=== PATIENT | male | born 1980 | race Caucasian/White ===

== ENCOUNTER 2016-12-14 03:48 | Inpatient (IN) | payer OTHER ==
[~2016-12-14] VITALS: Ht 176.5 cm; Wt 153.8 kg
--- NOTE | 2016-12-14 04:12 | NUR ---
PT TO ED C/O NON HEALING DIABETIC ULCER RT GREAT TOE. HAS HAD FOR "A FEW MONTHS" GETTING WORSE, NOW "THE TOE IS RED AND SWOLLEN AND THE ULCER IS DRAINING"
[2016-12-14 05:05] LABS: ABSOLUTE BASOPHIL COUNT 0.1 /CUMM (0.0-0.2); ABSOLUTE EOSINOPHIL COUNT 0.1 /CUMM (0.0-0.7); ABSOLUTE GRANULOCYTE CT 9.2 /CUMM (1.4-6.5); ABSOLUTE LYMPH COUNT 1.5 /CUMM (1.2-3.4); ABSOLUTE MONOCYTE COUNT 0.5 /CUMM (0.10-0.60); BASOPHIL % 0.9 % (0.0-2.0); EOSINOPHIL % 0.9 % (0-5); HEMATOCRIT 39.8 % (42-52); MEAN CORPUSCULAR HGB 25.7 PG (27.0-31.0); MEAN CORPUSCULAR HGB CONC 33.6 G/DL (33.0-37.0); MEAN CORPUSCULAR VOLUME 76.4 FL (80.0-94.0); MEAN PLATELET VOLUME 8.8 FL (7.4-10.4); PLATELET COUNT 233 /CUMM (130-400); RBC DISTRIBUTION WIDTH 14.1 % (11.5-14.5); WHITE BLOOD CELL COUNT 11.4 /CUMM (4.8-10.8)
--- NOTE | 2016-12-14 05:12 | RADIOLOGY REPORT ---
EXAMINATION: XR TOES, RIGHT CLINICAL INFORMATION: Chronic ulcer on the first toe. Redness to the metatarsal. COMPARISON: None TECHNIQUE: 3 views of the right toes were obtained. FINDINGS: There is soft tissue ulceration at the plantar aspect of the first digit. No definite osseous erosion. Slight lucency noted at the plantar aspect of the distal phalanx. Mild degenerative changes are noted at the interphalangeal joint and first metatarsophalangeal joint with small osteophytes present. Soft tissue swelling noted. IMPRESSION: No erosions. Lucency noted at the plantar aspect of the first digit distal phalanx adjacent to the ulcer. Osteomyelitis could have this appearance. MRI is more sensitive for the evaluation.
--- NOTE | 2016-12-14 05:44 | ED ANKLE/FOOT INJURY COMPLAINT ---
History of Present Illness General Chief Complaint: Lower Extremity Problems Stated Complaint: R TOE PAIN SINCE YESTERDAY Source: patient, old records Exam Limitations: no limitations Vital Signs & Intake/Output Vital Signs & Intake/Output Vital Signs Date Time Temp Pulse Resp B/P Pulse O2 O2 Flow FiO2 Ox Delivery Rate 12/14 0705 98.2 100 18 155/90 98 Room Air 12/14 0625 Room Air 12/14 0410 98.1 113 18 167/108 99 Room Air Allergies Coded Allergies: penicillin G (RASH 12/14/16) Reconcile Medications Alprazolam (Alprazolam ER) 1 MG TAB.ER.24H 1 TAB PO DAILY MENTAL HEALTH ( Reported) Cholecalciferol (Vitamin D3) (Vitamin D) 2,000 UNIT CAPSULE 5,000 UNIT PO DAILY VITAMIN SUPPORT (Reported) Glipizide (Glipizide ER) 10 MG TAB.ER.24 1 TAB PO DAILY DIABETES (Reported) Losartan Potassium 100 MG TABLET 1 TAB PO DAILY HEART HEALTH (Reported) Metformin HCl 500 MG TABLET 2 TAB PO BID DIABETES (Reported) Multivitamin (Daily Multiple Vitamin) 1 EACH TABLET 1 TAB PO DAILY VITAMIN SUPPORT (Reported) Sertraline HCl 100 MG TABLET 2.5 TAB PO DAILY MENTAL HEALTH (Reported) Triage Note: PT TO ED C/O NON HEALING DIABETIC ULCER RT GREAT TOE. HAS HAD FOR "A FEW MONTHS" GETTING WORSE, NOW "THE TOE IS RED AND SWOLLEN AND THE ULCER IS DRAINING" Triage Nurses Notes Reviewed? yes Occurred: yesterday Duration: day(s):, constant, continues in ED, getting worse Timing: recent history Severity: moderate Pain/Injury Location: Right: 1st toe. Method of Injury: unknown Modifying Factors: Improves With: immobilization, rest. Worsens With: movement. Associated Symptoms: swelling, redness, GCS 15 since, stiffness HPI: Several months prior to admission patient has had a poorly healing ulcer the base of his first right toe. 1 day prior to admission he noted redness and swelling to the metatarsal area. He denies fever chills nausea vomiting diarrhea abdominal pain chest pain shortness breath headache dysuria bleeding. Past History Travel History Traveled to [place] past 21 day No Medical History Any Pertinent Medical History? see below for history Cardiovascular: hypertension Psychiatric: anxiety, PANIC DISORDER Endocrine: diabetes Surgical History Surgical History: non-contributory Psychosocial History What is your primary language Ukrainian Tobacco Use: Never used ETOH Use: denies use Illicit Drug Use: denies illicit drug use Family History Hx Contributory? No Review of Systems Review of Systems Constitutional: Reports: no symptoms. EENTM: Reports: no symptoms. Respiratory: Reports: no symptoms. Cardiovascular: Reports: no symptoms. GI: Reports: no symptoms. Genitourinary: Reports: no symptoms. Musculoskeletal: Reports: no symptoms. Skin: Reports: see HPI, change in skin color, change in hair/nails, rash. Neurological/Psychological: Reports: no symptoms. Hematologic/Endocrine: Reports: no symptoms. Immunologic/Allergic: Reports: no symptoms. All Other Systems: Reviewed and Negative Physical Exam Physical Exam General Appearance: well developed/nourished, alert, awake, anxious, moderate distress, obese Head: atraumatic, normal appearance Eyes: Bilateral: normal appearance, PERRL, EOMI. Ears, Nose, Throat: normal pharynx, normal ENT inspection, hearing grossly normal Neck: normal inspection, supple, full range of motion, no midline tenderness Cardiovascular/Respiratory: normal breath sounds, normal peripheral pulses, regular rate/rhythm, no respiratory distress Back: normal inspection Leg/Knee/Thigh Left: normal range of motion, normal inspection Leg/Knee/Thigh Right: normal range of motion, normal inspection, right lateral pretibial ulcer Ankle Left: normal inspection, normal range of motion Ankle Right: normal inspection, normal range of motion Foot Left: normal inspection, normal range of motion Foot Right: erythema, infection, limited range of motion, soft tissue tenderness , swelling Reflexes: 2+: knee (R), knee (L). Neuro/Vascular: normal motor function Tendon: normal tendon function Psychiatric: awake, alert, oriented x 3 Skin: warm/dry, rash Progress Differential Diagnosis: cellulitis, gout, osteomyelitis Plan of Care: Orders Procedure Date/time Status Consistent Carbohydrate 2 12/14 B Active OXYGEN SETUP (GEN) 12/14 531 Active Saline Lock 12/14 531 Active Admit to inpatient 12/14 531 Active Vital Signs 12/14 531 Active Activity/Ambulation 12/14 531 Active Code Status 12/14 531 Active C-REACTIVE PROTEIN 12/14 429 Complete BLOOD CULTURE 12/14 423 Active HIGH SENSITIVITY CRP 12/14 423 Complete WESTERGREN SED RATE 12/14 423 Complete COMPREHENSIVE METABOLIC PANEL 12/14 423 Complete CBC WITHOUT DIFFERENTIAL 12/14 423 Complete Laboratory Tests 12/14/16 0430: Anion Gap 11, Estimated GFR > 60, BUN/Creatinine Ratio 27.5 H, Glucose 371 H, Calcium 8.9, Total Bilirubin 0.5, AST 18, ALT 38, Alkaline Phosphatase 105, C- Reactive Prot, Quant > 9.0 H, C-React Prot High Sens > 15.0 H, Total Protein 7.0, Albumin 3.6, Globulin 3.4, Albumin/Globulin Ratio 1.1, CBC w Diff NO MAN DIFF REQ, RBC 5.20, MCV 76.4 L, MCH 25.7 L, RDW 14.1, MPV 8.8, Gran % 81.0 H, Lymphocytes % 13.0 L, Monocytes % 4.2, Eosinophils % 0.9, Basophils % 0.9, Absolute Granulocytes 9.2 H, Absolute Lymphocytes 1.5, Absolute Monocytes 0.5, Absolute Eosinophils 0.1, Absolute Basophils 0.1, PUBS MCHC 33.6, ESR Westergren 109 H Microbiology 12/14 449 BLOOD: Blood Culture - RECD 12/14 429 BLOOD: Blood Culture - RECD Diagnostic Imaging: Viewed by Me: Radiology Read. Discussed w/RAD: Radiology Read. Radiology Impression: No erosions. Lucency noted at the plantar aspect of the first digit distal phalanx adjacent to the ulcer. Osteomyelitis could have this appearance Departure Departure Time of Disposition: 542 Disposition: STILL A PATIENT Condition: Stable Clinical Impression Primary Impression: Osteomyelitis of toe of right foot Referrals: ANGEL VARGAS,LOU (PCP/Family) Departure Forms: Customer Survey General Discharge Information Admission Note Spoke With: WALESKA VARGAS,JAMA Documentation of Exam: Documentation of any treatments & extenuating circumstances including Concerns Regarding Discharge (functional status, medication knowledge or non-compliance, living conditions, etc.) that warrant an admission rather than observation: IV antibiotics follow cultures podiatry evaluation MRI medication adjustment continuing care discharge planning.
--- NOTE | 2016-12-14 05:45 | NUR ---
BLOOOD CULTURES X2 DRAWN AND SENT TO LAB IV ACCESS ESTABLISHED LFA 22G PT REQUESTING BROTHER BE HERE PRIOR TO IV ANTIBIOTIC ADMINISTRATION. PT ASKING QUESTIONS ABOUT ALLERGIC REACTIONS. REASSUARANCE PROVIDED TO PATIENT
[2016-12-14] MEDS ORDERED: METFORMIN HCL500 M3 PO (07:24)
[2016-12-14] MEDS ORDERED: GLIPIZIDE ER10 M1 PO (07:24)
[2016-12-14] MEDS ORDERED: SERTRALINE HCL100 MG PO (07:25)
[2016-12-14] MEDS ORDERED: ALPRAZOLAM ER1 MG PO (07:25)
[2016-12-14] MEDS ORDERED: LOSARTAN POTAS100 M1 PO (07:26)
[2016-12-14] MEDS ORDERED: DAILY MULTIPLE1 EACH PO (07:26)
[2016-12-14] MEDS ORDERED: VITAMIN D2000 UNIT PO (07:27)
--- NOTE | 2016-12-14 07:56 | NUR ---
AWAITING BED ASSIGNMENT. ORDERED PT BREAKFAST. Informed waiting has been performed.
--- NOTE | 2016-12-14 09:12 | NUR ---
PT HAS BED ASSIGNMENT [id number]. RN NOTIFIED.
--- NOTE | 2016-12-14 09:20 | NUR ---
MEDICATED PER EMAR. HOUSESTAFF IN FOR EVAL.
[2016-12-14] MEDS ORDERED: NEXIUM40 M1 PO (09:33)
--- NOTE | 2016-12-14 09:41 | NUR ---
REPORT TO ANITA HAYWOOD ON 2NB. TRANSPORT CALLED.
--- NOTE | 2016-12-14 09:54 | NUR ---
PT TO FLOOR VIA W/C. ALL PAPERWORK AND BELONGINGS SENT. CLINICAL STATUS UNCHANGED.
--- NOTE | 2016-12-14 10:23 | History & Physical ---
CHRIS REYESKAVON 12/14/16 1023: General Information and HPI MD Statement: I have seen and personally examined ZENOBIA PAUL and documented this H&P. The patient is a 36 year old M who presented with a patient stated chief complaint of [ulcer under the right big toe]. Source of Information: patient Exam Limitations: no limitations History of Present Illness: 36-year-old man with past medical history of diabetes, hypertension, anxiety, depression came to the hospital for chief complaint of swelling, ulcer of the right big toe. Patient reports that he's been having this ulcer for at least 5 months and he was recommended by his PCP to see the brinell tester, however he never did. Patient reported this Thursday he felt fever of 100.5, with mild chills and weakness and redness around his also got worse. He has very mild pain of 2 out of 10. He denies any nausea, vomiting, chest pain, abdominal pain, shortness of breath, dizziness, sick contacts. Patient does report of having an ulcer in the same area about 1-1/2 years ago which resolved on its own. Vital signs on admission showed no fevers, mildly elevated blood pressure and pulses of 100 WBC showed 11.7, ESR 109, blood sugar 350, hg 13.4 mcv 76 toe x ray IMPRESSION: No erosions. Lucency noted at the plantar aspect of the first digit distal phalanx adjacent to the ulcer. Osteomyelitis could have this appearance. MRI is more sensitive for the evaluation. Allergies/Medications Allergies: Coded Allergies: penicillin G (RASH 12/14/16) Home Med list Alprazolam (Alprazolam ER) 1 MG TAB.ER.24H 1 TAB PO DAILY MENTAL HEALTH ( Reported) Cholecalciferol (Vitamin D3) (Vitamin D) 2,000 UNIT CAPSULE 5,000 UNIT PO DAILY VITAMIN SUPPORT (Reported) Esomeprazole (Nexium) 40 MG CAPSULE.DR 1 CAP PO DAILY gerd (Reported) Glipizide (Glipizide ER) 10 MG TAB.ER.24 1 TAB PO DAILY DIABETES (Reported) Losartan Potassium 100 MG TABLET 1 TAB PO DAILY HEART HEALTH (Reported) Metformin HCl 500 MG TABLET 2 TAB PO BID DIABETES (Reported) Multivitamin (Daily Multiple Vitamin) 1 EACH TABLET 1 TAB PO DAILY VITAMIN SUPPORT (Reported) Sertraline HCl 100 MG TABLET 2.5 TAB PO DAILY MENTAL HEALTH (Reported) Past History Travel History Traveled to [place] past 21 day No Medical History Blood Transfusion Hx: No Neurological: NONE EENT: NONE Cardiovascular: hypertension Respiratory: NONE Gastrointestinal: NONE Hepatic: NONE Renal: NONE Musculoskeletal: NONE Psychiatric: NONE, anxiety, PANIC DISORDER Endocrine: diabetes Blood Disorders: NONE Cancer(s): 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 Psychosocial History Where do you live? Home Services at Home: None Smoking Status: Never Smoked ETOH Use: denies use Illicit Drug Use: denies illicit drug use Review of Systems Review of Systems Constitutional: Reports: see HPI. Exam & Diagnostic Data Last 24 Hrs of Vital Signs/I&O Vital Signs Date Time Temp Pulse Resp B/P Pulse O2 O2 Flow FiO2 Ox Delivery Rate 12/14 0944 98.4 90 20 150/80 96 Room Air 12/14 0738 97.8 90 20 179/89 100 Room Air 12/14 0705 98.2 100 18 155/90 98 Room Air 12/14 0625 Room Air 12/14 0410 98.1 113 18 167/108 99 Room Air Intake & Output 12/14 1600 / 0800 12/14 0000 Intake Total 250 Output Total Balance 250 Intake, IV 250 Intake, Oral 0 Patient 340 lb 340 lb Weight Physical Exam General Appearance Alert, Oriented X3, Cooperative Cardiovascular Normal S1, Normal S2, tachycardic,2/6 systlic murmur Lungs Clear to Auscultation, Normal Air Movement Abdomen Normal Bowel Sounds, Soft, No Tenderness, No Hepatospenomegaly Neurological decreasd sensation of tips of all toes Extremities mild ankle edema bilaterally, 3x3 oval ulcer under the big right toe , mild pus Body Front and Back (Adult) 1) ulcer Assessment/Plan Assessment: 36-year-old man with past medical history of diabetes, hypertension, anxiety, depression came to the hospital for chief complaint of swelling, ulcer of the right big toe. Vital signs on admission showed no fevers, mildly elevated blood pressure and pulses of 100 WBC showed 11.7, ESR 109, blood sugar 350, toe x ray IMPRESSION: No erosions. Lucency noted at the plantar aspect of the first digit distal phalanx adjacent to the ulcer. Osteomyelitis could have this appearance. MRI is more sensitive for the evaluation. Assessment and plan #Ulcer of the big toe, rule out osteomyelitis -Patient got set vancomycin and ceftaz in ED,w will hold off any abx for now -Check for fevers, any signs of sepsis -ID and podiatry are notified -cbc daily -mri with/ without CHAY tomorrow -EKG for baseline #Diabetes -Sliding scale insulin, fingerstick, diabetic diet #Hypertension, anxiety -Continue Zoloft, Cozaar, Ativan #microcytc anemia -Check iron studies -Check guaiac stool DVT prophylaxis is Lovenox, full code, oxycodone for pain, diabetic diet As Ranked By This Provider Problem List: 1. Osteomyelitis of toe of right foot Core Measures/Miscellaneous Acute Coronary Syndrome ACS Diagnosis: No Cerebrovascular Accident CVA/TIA Diagnosis: No Congestive Heart Failure CHF Diagnosis: No Venous Thromboembolism VTE Risk Factors: Obesity VTE Prophylaxis Ordered Inpt: Mech & Pharm No Mech VTE prophylaxis d/t: No contraindications No VTE Pharm Prophylaxis d/t: No contraindications VTE Diagnosis: No VTE Type: NONE VTE Confirmed by (Test): NONE Severe Sepsis Severe Sepsis Present: No Septic Shock Septic Shock Present: No Miscellaneous Documentation Attending Case Discussed With: JAMA GALEANO MD Primary Care Physician: LOU ORTIZ MD Patient sees these Specialists n/a Level of Patient Care: General Medicine JAMA GALEANO MD 12/14/16 1340: Attending MD Review Statement Attending Statement Attending MD Statement: examined this patient, discuss w/resident/PA/ROENTGENOLOGIST, agreed w/resident/PA/ROENTGENOLOGIST, reviewed EMR data (avail) Attending Assessment/Plan: 36-year-old man with past medical history of diabetes, hypertension, anxiety, depression came to the hospital for chief complaint of swelling, ulcer of the right big toe with surrounding erythema and swelling and a punched out lesion on the plantar surface with x-rays suggesting ostium myelitis. His sedimentation rate is elevated above 100. Assessment plan * Uncontrolled diabetes * Morbid obesity * Ostermeier does have right great toe with mild surrounding cellulitis * Chronic anemia Plan * We'll obtain infectious disease and prior to consult * Pain control * Patient likely will need insulin therefore I will begin 8 units Levemir twice a day and continue sliding scale. Patient can continue his glipizide hold Glucophage for now given the possibility of near future MRI. * Patient may need biopsy of the right great toe and cultures.
--- NOTE | 2016-12-14 13:44 | Admission Certification ---
Admission Certification Certification Statement - As attending physician, I certify that at the time of - admission, based on clinical presentation, severity of - symptoms, need for further diagnostic testing and - therapeutic interventions, and risk of adverse outcomes - without in-hospital treatment, in my clinical assessment, - this patient requires an acute hospital stay for a minimum - of two nights or longer. I have also considered psychsocial - factors such as support system, advanced age, financial - issues, cognitive issues, and failed out-patient treatments, - past re-admission history, safety of patient, and lack of - compliance as applicable. Specific rationale supporting this admission is: Osteomyelitis of right great toe and uncontrolled diabetes
[2016-12-14 14:51] VITALS: BP 148/82
--- NOTE | 2016-12-14 15:35 | Cons- Podiatry ---
General Information and HPI Consulting Request Date of Consult: 12/14/16 Requested By: WALESKA VARGAS,JAMA History of Present Illness: Mr. Rosario is a 36-year-old poorly controlled diabetic who presented to the ER complaining of a 2 day history of a red hot swollen right great toe. The patient also admits to subjective fever 2 days ago. Patient states that his sugars are poorly controlled and that he has had this lesion for 4-5 months. Allergies/Medications Allergies: Coded Allergies: penicillin G (RASH 12/14/16) Home Med List: Alprazolam (Alprazolam ER) 1 MG TAB.ER.24H 1 TAB PO DAILY MENTAL HEALTH ( Reported) Cholecalciferol (Vitamin D3) (Vitamin D) 2,000 UNIT CAPSULE 5,000 UNIT PO DAILY VITAMIN SUPPORT (Reported) Esomeprazole (Nexium) 40 MG CAPSULE.DR 1 CAP PO DAILY gerd (Reported) Glipizide (Glipizide ER) 10 MG TAB.ER.24 1 TAB PO DAILY DIABETES (Reported) Losartan Potassium 100 MG TABLET 1 TAB PO DAILY HEART HEALTH (Reported) Metformin HCl 500 MG TABLET 2 TAB PO BID DIABETES (Reported) Multivitamin (Daily Multiple Vitamin) 1 EACH TABLET 1 TAB PO DAILY VITAMIN SUPPORT (Reported) Sertraline HCl 100 MG TABLET 2.5 TAB PO DAILY MENTAL HEALTH (Reported) Past History Medical History Blood Transfusion Hx: No Neurological: NONE EENT: NONE Cardiovascular: hypertension Respiratory: NONE Gastrointestinal: NONE Hepatic: NONE Renal: NONE Musculoskeletal: NONE Psychiatric: NONE, anxiety, PANIC DISORDER Endocrine: diabetes Blood Disorders: NONE Cancer(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 Psychosocial History Where Do You Live? Home Services at Home: None Smoking Status: Never Smoked ETOH Use: denies use Illicit Drug Use: denies illicit drug use Review of Systems Review of Systems: Unremarkable except for that noted in history of present illness Exam & Diagnostic Data Vital Signs and I&O Vital Signs Date Time Temp Pulse Resp B/P Pulse O2 O2 Flow FiO2 Ox Delivery Rate 12/14 1451 98.6 109 20 148/82 97 Room Air 12/14 0944 98.4 90 20 150/80 96 Room Air 12/14 0738 97.8 90 20 179/89 100 Room Air 12/14 0705 98.2 100 18 155/90 98 Room Air 12/14 0625 Room Air 12/14 0410 98.1 113 18 167/108 99 Room Air Intake & Output 12/14 1600 12/14 0812/14 0000 12/13 1600 12/13 0812/13 0000 Intake Total 1000 250 Output Total Balance 1000 250 Intake, IV 250 Intake, Oral 1000 0 Patient 340 lb 340 lb Weight Physical Exam: 3 cm x 2 half centimeter Milian grade 3 ulceration noted to the plantar aspect of the right great toe. There is necrotic slough overlying the wound bed. Centrally the lesion is noted to probe to bone. No crepitus or fluctuance identified. Proximally 3-4 cm of cellulitis extending from the periphery of the wound bed. Minimal serous drainage identified. Assessment/Plan Assessment/Plan Cellulitis right lower extremity with likely underlying osteomyelitis. Hold antibiotics assuming the patient is stable and afebrile. Will follow-up MRI findings tomorrow. Patient will require either a debridement or amputation pending the imaging tomorrow. Consult Acknowledgment - Thank you for your consult request. Attending MD Review Statement Attending Statement Attending MD Statement: examined this patient
[2016-12-14 15:49] VITALS: BP 168/108
--- NOTE | 2016-12-14 16:35 | Cons- Infect Disease ---
General Information and HPI Consulting Request Date of Consult: 12/14/16 Requested By: WALESKA VARGAS,JAMA Reason for Consult: Rule out osteomyelitis of the right great toe Source of Information: patient History of Present Illness: This is a 36-year-old man with a history of diabetes for 4 years, with a secondary neuropathy, noncompliant with his medication, and with a history of a previous ulcer on the right great toe which healed with conservative care, admitted today with a six-month history of a recurrent ulcer on the plantar aspect of his right great toe and a 2 day history of erythema and swelling of the toe, with drainage and fever. On admission he was afebrile. Laboratory data revealed a white blood cell count of 11,000, glucose 371, BUN/creatinine 22 and 0.8, with normal liver enzymes, ESR 109. X-ray of the right foot revealed a lucency at the plantar aspect of the first digit distal phalanx. He was given Vancomycin and Ceftazidime and was then followed off antibiotics. He denies any pain, which he attributes to his neuropathy. Allergies/Medications Allergies: Coded Allergies: penicillin G (RASH 12/14/16) Home Med List: Alprazolam (Alprazolam ER) 1 MG TAB.ER.24H 1 TAB PO DAILY MENTAL HEALTH ( Reported) Cholecalciferol (Vitamin D3) (Vitamin D) 2,000 UNIT CAPSULE 5,000 UNIT PO DAILY VITAMIN SUPPORT (Reported) Esomeprazole (Nexium) 40 MG CAPSULE.DR 1 CAP PO DAILY gerd (Reported) Glipizide (Glipizide ER) 10 MG TAB.ER.24 1 TAB PO DAILY DIABETES (Reported) Losartan Potassium 100 MG TABLET 1 TAB PO DAILY HEART HEALTH (Reported) Metformin HCl 500 MG TABLET 2 TAB PO BID DIABETES (Reported) Multivitamin (Daily Multiple Vitamin) 1 EACH TABLET 1 TAB PO DAILY VITAMIN SUPPORT (Reported) Sertraline HCl 100 MG TABLET 2.5 TAB PO DAILY MENTAL HEALTH (Reported) Past History Travel History Traveled to [place] past 21 day No Medical History Blood Transfusion Hx: No Neurological: peripheral neuropathy EENT: NONE Cardiovascular: hypertension Respiratory: NONE Gastrointestinal: NONE Hepatic: NONE Renal: NONE Musculoskeletal: NONE Psychiatric: anxiety, PANIC DISORDER Endocrine: diabetes Blood Disorders: NONE Cancer(s): 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 Psychosocial History Where Do You Live? Home Services at Home: None Smoking Status: Never Smoked ETOH Use: denies use Illicit Drug Use: denies illicit drug use Review of Systems Review of Systems All Other Systems: Reviewed and Negative Exam & Diagnostic Data Last 24 Hrs of Vital Signs/I&O Vital Signs Date Time Temp Pulse Resp B/P Pulse O2 O2 Flow FiO2 Ox Delivery Rate 12/14 1549 97.9 112 18 168/108 95 Room Air 12/14 1451 98.6 109 20 148/82 97 Room Air 12/14 0944 98.4 90 20 150/80 96 Room Air 12/14 0738 97.8 90 20 179/89 100 Room Air 12/14 0705 98.2 100 18 155/90 98 Room Air 12/14 0625 Room Air 12/14 0410 98.1 113 18 167/108 99 Room Air Intake & Output 12/14 1600 12/14 0800 12/14 0000 Intake Total 1000 250 Output Total Balance 1000 250 Intake, IV 250 Intake, Oral 1000 0 Patient 340 lb 340 lb Weight Physical Exam Other Physical Findings: He is awake and alert in no acute distress. He is afebrile. Skin reveals psoriatic lesions on his back. HEENT exam is negative. Neck is supple with no adenopathy. Lungs are clear. Heart regular rhythm with no murmur. Abdomen is obese, soft, nontender with positive bowel sounds. Back no CVA tenderness. Extremities right great toe erythema and edema, with a plantar ulcer, slightly necrotic, which probes to bone, with drainage on the dressing; pulses 2+ and equal; no cyanosis, clubbing or edema of the lower extremities. Neuro neuropathy both feet. Last 24 Hours of Lab Results: Laboratory Tests 12/14 0430 Chemistry Sodium (137 - 145 mmol/L) 132 L Potassium (3.5 - 5.1 mmol/L) 4.5 Chloride (98 - 107 mmol/L) 93 L Carbon Dioxide (22 - 30 mmol/L) 28 Anion Gap (5 - 16) 11 BUN (9 - 20 mg/dL) 22 H Creatinine (0.7 - 1.2 mg/dL) 0.8 Estimated GFR (>60 ml/min) > 60 BUN/Creatinine Ratio (7 - 25 %) 27.5 H Glucose (65 - 99 mg/dL) 371 H Calcium (8.4 - 10.2 mg/dL) 8.9 Iron (49 - 181 ug/dL) 24 L TIBC (261 - 462 ug/dL) 293 Ferritin (17.9 - 464 ng/mL) 110.0 Total Bilirubin (0.2 - 1.3 mg/dL) 0.5 AST (17 - 59 U/L) 18 ALT (21 - 72 U/L) 38 Alkaline Phosphatase (< 127 U/L) 105 C-Reactive Prot, Quant (<1.0 mg/dL) > 9.0 H C-React Prot High Sens (1.0 - 3.0 mg/L) > 15.0 H Total Protein (6.3 - 8.2 g/dL) 7.0 Albumin (3.5 - 5.0 g/dL) 3.6 Globulin (1.9 - 4.2 gm/dL) 3.4 Albumin/Globulin Ratio (1.1 - 2.2 %) 1.1 Hematology CBC w Diff NO MAN DIFF REQ WBC (4.8 - 10.8 /CUMM) 11.4 H RBC (4.70 - 6.10 /CUMM) 5.20 Hgb (14.0 - 18.0 G/DL) 13.4 L Hct (42 - 52 %) 39.8 L MCV (80.0 - 94.0 FL) 76.4 L MCH (27.0 - 31.0 PG) 25.7 L RDW (11.5 - 14.5 %) 14.1 Plt Count (130 - 400 /CUMM) 233 MPV (7.4 - 10.4 FL) 8.8 Gran % (42.2 - 75.2 %) 81.0 H Lymphocytes % (20.5 - 51.1 %) 13.0 L Monocytes % (1.7 - 9.3 %) 4.2 Eosinophils % (0 - 5 %) 0.9 Basophils % (0.0 - 2.0 %) 0.9 Absolute Granulocytes (1.4 - 6.5 /CUMM) 9.2 H Absolute Lymphocytes (1.2 - 3.4 /CUMM) 1.5 Absolute Monocytes (0.10 - 0.60 /CUMM) 0.5 Absolute Eosinophils (0.0 - 0.7 /CUMM) 0.1 Absolute Basophils (0.0 - 0.2 /CUMM) 0.1 PUBS MCHC (33.0 - 37.0 G/DL) 33.6 ESR Westergren (0 - 10 MM) 109 H Last 24 Hours of [facility] Results: Blood cultures December 14 pending Diagnostic Data Recent Imaging Findings: X-ray of the right foot December 14 reveals a slight lucency at the plantar aspect of the distal phalanx of the first digit Assessment/Plan Assessment/Plan Impression: This is a 36-year-old diabetic man with a secondary neuropathy, admitted this morning with a six-month history of a right great toe plantar ulcer and a 2 day history of erythema and swelling of the right great toe, with drainage and fevers, found on admission to be afebrile with a mild leukocytosis and with an x -ray suggestive of possible osteomyelitis of the distal phalanx of the right great toe. His history is very suggestive of osteomyelitis, and this diagnosis is supported by the elevated ESR. He will need debridement/probable amputation and, possibly, a prolonged course of IV antibiotics, depending on whether there is felt to be residual osteomyelitis after his surgery. An MRI can be done, though, clinically, his clinical picture is quite suggestive of this diagnosis. As he is stable he can be followed off antibiotics in an effort to optimize the culture results. Suggestion: 1. Await MRI of the right foot 2. Await debridement/amputation in the OR per Podiatry 3. Follow off antibiotics pending above Consult Acknowledgment - Thank you for your consult request.
[2016-12-14 23:56] VITALS: BP 137/65
--- NOTE | 2016-12-15 06:48 | PN- Housestaff ---
See Addendum Subjective Follow-up For: Right great toe osteomyelitis Subjective: Patient seen and examiend at bedside this AM. He endorsed a 2/10 toe pain that is tolerable. He is amenable to MRI today and willing to go to the OR with Dr. Luis if MRI is revealing for osteomyelitis. Review of Systems Constitutional: Denies: chills, fever, malaise. EENTM: Denies: blurred vision, visual changes, hearing changes, nasal congestion. Cardiovascular: Denies: chest pain, palpitations. Respiratory: Denies: cough, short of breath. Gastrointestinal: Denies: abdominal pain. Genitourinary: Denies: dysuria. Musculoskeletal: Reports: joint pain (Right great toe). Denies: back pain. Skin: Reports: lesions (Right great toe). Neurological/Psychological: Reports: numbness (Peripheral neuropathy), paresthesia. Hematologic/Endocrine: Denies: bruising, bleeding. Immunologic/Allergic: Denies: splenectomy. Objective Last 24 Hrs of Vital Signs/I&O Vital Signs Date Time Temp Pulse Resp B/P Pulse O2 O2 Flow FiO2 Ox Delivery Rate 12/15 1005 108 144/106 12/15 0906 98.2 110 20 150/80 97 Room Air 12/14 2356 97.4 82 20 137/65 96 Room Air 12/14 1549 97.9 112 18 168/108 95 Room Air Intake & Output 12/15 1600 12/15 0800 12/15 0000 Intake Total 720 340 Output Total Balance 720 340 Intake, Oral 720 340 Physical Exam General Appearance: Alert, Oriented X3, Cooperative, No Acute Distress Skin: Right great toe lesion with evidence of erythema and drainage HEENT: Atraumatic, Mucous Membr. moist/pink Neck: Supple, No LAD Lymphatic: Axillary nl, Cervical nl Cardiovascular: Regular Rate, Normal S1, Normal S2, No Murmurs Lungs: Clear to Auscultation, Normal Air Movement Abdomen: Normal Bowel Sounds, Soft, No Tenderness, No Hepatospenomegaly Neurological: Normal Gait, Normal Speech Extremities: No Clubbing, No Cyanosis Current Medications: Current Medications Sig/Gerard Start time Last Medication Dose Route Stop Time Status Admin Acetaminophen 650 MG Q6P PRN 12/14 0945 AC PO Alprazolam 0.5 MG BID 12/14 2199 DC PO 12/21 2158 Alprazolam 0.25 MG 4 TIMES/DAY 12/14 1630 AC 12/15 PO 12/21 1629 1338 Enoxaparin Sodium 40 MG DAILY 12/15 1000 AC SC Ferrous Sulfate 325 MG DAILY 12/15 1000 AC 12/15 PO 1006 Glipizide 10 MG DAILY AC 12/14 0900 AC 12/15 PO 0616 Insulin Aspart 0 TIDAC 12/14 1200 AC 12/15 SC 12/16 0000 1335 Insulin Detemir 4 UNITS BID 12/14 2200 AC 12/15 SC 1006 Insulin Human Regular 0 Q6 12/16 0600 AC SC Losartan Potassium 100 MG DAILY 12/14 1000 AC 12/15 PO 1005 Metformin HCl 1,000 MG 0800,1700 12/14 0800 DC 12/14 PO 1648 Morphine Sulfate 4 MG Q4P PRN 12/14 0945 AC IV Omeprazole 20 MG DAILY AC 12/15 0700 AC 12/15 PO 0616 Oxycodone HCl 5 MG Q6P PRN 12/14 0945 AC PO Sertraline HCl 250 MG DAILY 12/14 1000 AC 12/15 PO 1005 Vancomycin HCl 1,000 MG Q12 12/14 220 DC Dextrose/Water 250 ML IV Last 24 Hrs of Lab/Umang Results Last 24 Hrs of Labs/Mics: Laboratory Tests 12/15/16 0745: Anion Gap 11, Estimated GFR > 60, BUN/Creatinine Ratio 22.2, CBC w Diff NO MAN DIFF REQ, RBC 5.00, MCV 76.8 L, MCH 25.9 L, RDW 14.2, MPV 9.3, Gran % 81.4 H, Lymphocytes % 12.1 L, Monocytes % 4.7, Eosinophils % 1.5, Basophils % 0.3, Absolute Granulocytes 8.8 H, Absolute Lymphocytes 1.3, Absolute Monocytes 0.5, Absolute Eosinophils 0.2, Absolute Basophils 0, PUBS MCHC 33.7 12/15/16 0600: Hemoglobin A1c Pending Orders Radiology Findings: Toe XRay: IMPRESSION: No erosions. Lucency noted at the plantar aspect of the first digit distal phalanx adjacent to the ulcer. Osteomyelitis could have this appearance. MRI is more sensitive for the evaluation. Miscellaneous Findings: EXAMINATION: MRI FOOT WITHOUT AND WITH CONTRAST, RIGHT CLINICAL INFORMATION: Osteomyelitis. Ulcer right great toe plantar aspect. COMPARISON: None. TECHNIQUE: MRI the right foot was performed before and after contrast. Contrast dose 20 mL of Gadavist given intravenously. The examination is technically compromised because of patient movement throughout the examination despite repeating multiple sequences. Patient could not hold still throughout the exam. The field of view is limited to the forefoot given the clinical indication. FINDINGS: Despite the limitation because of motion artifact, there is some diagnostic information on the examination. Great Toe: There is abnormal signal and enhancement in the subcutaneous soft tissues, most prominent along the medial plantar aspect of the toe at the level of the distal phalanx. The abnormal signal extends from the superficial portion of the soft tissues to the bone. This abnormal signal is dark on T1 bright on T2. There is some signal void superficially which may reflect an ulcer or air in the soft tissues. There is concomitant abnormal signal throughout the distal phalanx and proximal phalanx crossing the IP joint where there is also a moderate joint effusion. Concomitant enhancement of the bone corresponding to the areas of bone marrow edema. No definite bone destruction or erosion. There is additional generalized abnormal signal in the subcutaneous soft tissues with some minimal heterogeneous enhancement throughout the forefoot compatible with edema, cellulitis or a combination of both. Muscles/Tendons: There is abnormal signal diffusely throughout with some possible mild heterogeneous enhancement compatible with edema and/or myositis. No focal fluid collection identified. Joint Fluid/Bursa: As noted above, there is a moderate effusion of the IP joint of the great toe and a mild effusion of the first metacarpophalangeal joint. Otherwise unremarkable. Neurovascular Structures: Unremarkable. Ligaments: Unremarkable. IMPRESSION: Limited examination as the patient was moving throughout the examination resulting in motion artifact. Despite this, there is some diagnostic information available. Findings compatible with ulceration and/or soft tissue infection/cellulitis overlying the plantar medial aspect of the distal phalanx, possibly with an ulcer and/or small superficial sinus tract. There is concomitant abnormal signal within the distal phalanx and proximal phalanx crossing the IP joint which likely reflects osteomyelitis and septic arthritis in the clinical scenario presented. No clear bone erosion or destruction on the examination. However, the findings likely reflect early osteomyelitis prior to a morphologic abnormality. Other noninfectious inflammatory arthropathy could result in the same appearance but typically are not associated with overlying soft tissue changes as described. Additional abnormality in the subcutaneous soft tissues of the forefoot could reflect edema, cellulitis or a combination of the two. Additionally, there is abnormal signal in the muscles of the forefoot, likely reflecting edema and/or myositis. Assessment/Plan Assessment: Mr. Rosario is a pleasant 36 year old male with PMH DM, HTN, anxitey and depression who presented to [place] on 12/14/16 with chief complaint of swelling and ulceration of his right large toe. This ulceration has been present for at least 5 months, but recently it has been associated with fever to 100.5, chills weakness and erythema. In the ED: Vitals showed T 98.1, HR 113, RR 18, BP 167/109 and O2 saturation of 99% on RA. Labs were significant for WBC 11.7 without bandemia, H&H 13.4/39.8, Na 132, ESR 109, BUN 22, blood sugar 350, Fe 24. Patient was admitted to the general medicine floor and the following is the management: 1. Right great toe osteomyelitis * Initial toe Xray suggestive of osteomyelitis, f/u MRI today showed findings consistent with osteomyelitis * Patient currently off antibiotics pending OR with Dr. Luis tomorrow * NPO after midnight, will adjust sliding scale accordingly * ID consult appreciated, suggested patient begin Cefazolin 2 g IV every 8 hours postop pending OR cultures * Patient currently remains afebrile, monitor for fevers * BC x 2 sent, f/u results * Pain control with morphine for severe pain, roxicodone for moderate pain, and tylenol for mild pain 2. HTN, HLD * Continue losartan 100 mg PO daily 3. Diabetes mellitus * HgA1C ordered, f/u results * Continue NSS and glipizide, levemir 4 U SC BID * Accuchecks TIDAC/HS 4. Anxiety/depression * Continue zoloft 250 mg PO daily * Continue xanax QID 0.25 mg as needed for anxiety 4. Microcytic anemia * NO active signs of bleeding * Fe level noted to be low * Ferrous sulfate started FULL CODE Regular diet Mild-severe pain pathway DVTP: Lovenox Problem List: 1. Osteomyelitis of toe of right foot Pain Ratin Pain Location: Right great toe Pain Goal: Remain pain free Pain Plan: Mild to severe pain pathway. Tomorrow's Labs & Rationales: CBC (monitor leukocytosis)
[2016-12-15 09:06] VITALS: BP 150/80
[2016-12-15 09:26] LABS: ABSOLUTE BASOPHIL COUNT 0 /CUMM (0.0-0.2); ABSOLUTE EOSINOPHIL COUNT 0.2 /CUMM (0.0-0.7); ABSOLUTE GRANULOCYTE CT 8.8 /CUMM (1.4-6.5); ABSOLUTE LYMPH COUNT 1.3 /CUMM (1.2-3.4); ABSOLUTE MONOCYTE COUNT 0.5 /CUMM (0.10-0.60); BASOPHIL % 0.3 % (0.0-2.0); EOSINOPHIL % 1.5 % (0-5); GRANULOCYTE % 81.4 % (42.2-75.2); HEMATOCRIT 38.4 % (42-52); MEAN CORPUSCULAR HGB 25.9 PG (27.0-31.0); MEAN CORPUSCULAR HGB CONC 33.7 G/DL (33.0-37.0); MEAN CORPUSCULAR VOLUME 76.8 FL (80.0-94.0); MEAN PLATELET VOLUME 9.3 FL (7.4-10.4); PLATELET COUNT 236 /CUMM (130-400); RBC DISTRIBUTION WIDTH 14.2 % (11.5-14.5); WHITE BLOOD CELL COUNT 10.8 /CUMM (4.8-10.8)
--- NOTE | 2016-12-15 13:51 | MRI REPORT ---
EXAMINATION: MRI FOOT WITHOUT AND WITH CONTRAST, RIGHT CLINICAL INFORMATION: Osteomyelitis. Ulcer right great toe plantar aspect. COMPARISON: None. TECHNIQUE: MRI the right foot was performed before and after contrast. Contrast dose 20 mL of Gadavist given intravenously. The examination is technically compromised because of patient movement throughout the examination despite repeating multiple sequences. Patient could not hold still throughout the exam. The field of view is limited to the forefoot given the clinical indication. FINDINGS: Despite the limitation because of motion artifact, there is some diagnostic information on the examination. Great Toe: There is abnormal signal and enhancement in the subcutaneous soft tissues, most prominent along the medial plantar aspect of the toe at the level of the distal phalanx. The abnormal signal extends from the superficial portion of the soft tissues to the bone. This abnormal signal is dark on T1 bright on T2. There is some signal void superficially which may reflect an ulcer or air in the soft tissues. There is concomitant abnormal signal throughout the distal phalanx and proximal phalanx crossing the IP joint where there is also a moderate joint effusion. Concomitant enhancement of the bone corresponding to the areas of bone marrow edema. No definite bone destruction or erosion. There is additional generalized abnormal signal in the subcutaneous soft tissues with some minimal heterogeneous enhancement throughout the forefoot compatible with edema, cellulitis or a combination of both. Muscles/Tendons: There is abnormal signal diffusely throughout with some possible mild heterogeneous enhancement compatible with edema and/or myositis. No focal fluid collection identified. Joint Fluid/Bursa: As noted above, there is a moderate effusion of the IP joint of the great toe and a mild effusion of the first metacarpophalangeal joint. Otherwise unremarkable. Neurovascular Structures: Unremarkable. Ligaments: Unremarkable. IMPRESSION: Limited examination as the patient was moving throughout the examination resulting in motion artifact. Despite this, there is some diagnostic information available. Findings compatible with ulceration and/or soft tissue infection/cellulitis overlying the plantar medial aspect of the distal phalanx, possibly with an ulcer and/or small superficial sinus tract. There is concomitant abnormal signal within the distal phalanx and proximal phalanx crossing the IP joint which likely reflects osteomyelitis and septic arthritis in the clinical scenario presented. No clear bone erosion or destruction on the examination. However, the findings likely reflect early osteomyelitis prior to a morphologic abnormality. Other noninfectious inflammatory arthropathy could result in the same appearance but typically are not associated with overlying soft tissue changes as described. Additional abnormality in the subcutaneous soft tissues of the forefoot could reflect edema, cellulitis or a combination of the two. Additionally, there is abnormal signal in the muscles of the forefoot, likely reflecting edema and/or myositis.
--- NOTE | 2016-12-15 15:38 | PN- Infect Dx ---
Subjective Subjective: Afebrile. He notes minimal discomfort in the right great toe. Objective Last 24 Hrs of Vital Signs/I&O Vital Signs Date Time Temp Pulse Resp B/P Pulse O2 O2 Flow FiO2 Ox Delivery Rate 12/15 1005 108 144/106 12/15 0906 98.2 110 20 150/80 97 Room Air 12/14 2356 97.4 82 20 137/65 96 Room Air 12/14 1549 97.9 112 18 168/108 95 Room Air Intake & Output 12/15 1600 12/15 0800 12/15 0000 Intake Total 720 340 Output Total Balance 720 340 Intake, Oral 720 340 Physical Exam Other Physical Findings: He appears comfortable in no acute distress Extremities right great toe edema with minimal erythema, nontender to palpation; plantar ulcer unchanged with old drainage on the dressing Results Last 24 Hours of Lab Results: Laboratory Tests 12/15 12/15 0745 0600 Chemistry Sodium (137 - 145 mmol/L) 138 Potassium (3.5 - 5.1 mmol/L) 5.1 Chloride (98 - 107 mmol/L) 97 L Carbon Dioxide (22 - 30 mmol/L) 29 Anion Gap (5 - 16) 11 BUN (9 - 20 mg/dL) 20 Creatinine (0.7 - 1.2 mg/dL) 0.9 Estimated GFR (>60 ml/min) > 60 BUN/Creatinine Ratio (7 - 25 %) 22.2 Hemoglobin A1c Pending Hematology CBC w Diff NO MAN DIFF REQ WBC (4.8 - 10.8 /CUMM) 10.8 RBC (4.70 - 6.10 /CUMM) 5.00 Hgb (14.0 - 18.0 G/DL) 12.9 L Hct (42 - 52 %) 38.4 L MCV (80.0 - 94.0 FL) 76.8 L MCH (27.0 - 31.0 PG) 25.9 L RDW (11.5 - 14.5 %) 14.2 Plt Count (130 - 400 /CUMM) 236 MPV (7.4 - 10.4 FL) 9.3 Gran % (42.2 - 75.2 %) 81.4 H Lymphocytes % (20.5 - 51.1 %) 12.1 L Monocytes % (1.7 - 9.3 %) 4.7 Eosinophils % (0 - 5 %) 1.5 Basophils % (0.0 - 2.0 %) 0.3 Absolute Granulocytes (1.4 - 6.5 /CUMM) 8.8 H Absolute Lymphocytes (1.2 - 3.4 /CUMM) 1.3 Absolute Monocytes (0.10 - 0.60 /CUMM) 0.5 Absolute Eosinophils (0.0 - 0.7 /CUMM) 0.2 Absolute Basophils (0.0 - 0.2 /CUMM) 0 PUBS MCHC (33.0 - 37.0 G/DL) 33.7 Last 24 Hours of Umang Results: Blood cultures December 14 negative Recent Imaging Studies: MRI of the right foot December 15 reveals an abnormal signal and enhancement in the subcutaneous soft tissues, most prominent along the medial plantar aspect of the toe at the level of the distal phalanx, extending to the bone, with concomitant abnormal signal throughout the distal phalanx and proximal phalanx crossing the IP joint, with a moderate joint effusion Assessment/Plan Impression: Stable off antibiotics with temperatures remaining normal and white blood cell count only minimally elevated. His MRI is suggestive of osteomyelitis and septic arthritis and he is scheduled for debridement and probable amputation of the right great toe in the a.m. He may well require a prolonged course of antibiotics postop for residual osteomyelitis, but this can be further discussed with Podiatry and will depend on the OR findings. As he is stable he can continue to be followed off antibiotics, but he can be started on antibiotics postop pending OR cultures. He does have a remote and questionable allergy to penicillins, but has tolerated cephalosporins, and this may affect the antibiotic options. Suggestion: 1. Await debridement/amputation in the OR in the a.m. 2. Continue to follow off antibiotics pending above, but can begin Cefazolin 2 g IV every 8 hours postop pending OR cultures
[2016-12-15 16:35] VITALS: BP 146/98
--- NOTE | 2016-12-15 16:51 | PN- Podiatry ---
Subjective Subjective: Patient seen at bedside for right foot osteomyelitis. No acute complaints overnight. Patient denies nausea vomiting fever chills. Patient states that his foot pain is well-controlled by mouth analgesics. Objective Vital Signs and I&Os Vital Signs Date Time Temp Pulse Resp B/P Pulse O2 O2 Flow FiO2 Ox Delivery Rate 12/15 1635 98.8 105 21 146/98 96 Room Air 12/15 1005 108 144/106 12/15 0906 98.2 110 20 150/80 97 Room Air 12/14 2356 97.4 82 20 137/65 96 Room Air Intake & Output 12/15 1600 12/15 0800 12/15 0000 12/14 1600 12/14 0800 12/14 0000 Intake Total 851 752 8986 250 Output Total Balance 120 307 9322 250 Intake, IV 250 Intake, Oral 510 293 6874 0 Patient 340 lb 340 lb Weight Physical Exam: Dressing right foot clean dry and intact. No strikethrough identified. No pain with deep palpation bilaterally. Assessment/Plan Assessment/Plan Cellulitis nonhealing ulcer with underlying ostium myelitis right foot. Patient nothing by mouth past midnight for OR tomorrow. Patient undergo primary digital amputation. Attending MD Review Statement Attending Statement Attending MD Statement: examined this patient
[2016-12-16 00:01] VITALS: BP 140/86
--- NOTE | 2016-12-16 07:01 | PN- Housestaff ---
See Addendum Subjective Follow-up For: Right toe osteomyelitis Uncontrolled DM Subjective: Patient seen and examined at bedside this AM. He reports his pain is minimal and he is prepared for surgery today. He offers no other complaints and is aware he will be placed on IV antibiotics after his procedure with Dr. Luis. Review of Systems Constitutional: Denies: chills, fever, malaise. EENTM: Denies: blurred vision, visual changes, hearing changes. Cardiovascular: Denies: chest pain, palpitations. Respiratory: Denies: cough, short of breath. Gastrointestinal: Denies: abdominal pain, nausea, vomiting. Genitourinary: Denies: dysuria. Musculoskeletal: Reports: joint pain (Right toe). Denies: back pain. Skin: Reports: lesions (Right great toe). Neurological/Psychological: Reports: numbness, paresthesia (Peripheral neuropathy). Hematologic/Endocrine: Denies: polyuria, polydipsia. Immunologic/Allergic: Denies: splenectomy. Objective Last 24 Hrs of Vital Signs/I&O Vital Signs Date Time Temp Pulse Resp B/P Pulse O2 O2 Flow FiO2 Ox Delivery Rate 12/16 0809 98.6 102 20 132/70 95 Room Air 12/16 0001 98.8 100 20 140/86 96 Room Air 12/15 1635 98.8 105 21 146/98 96 Room Air Intake & Output 12/16 1600 12/16 0800 12/16 0000 Intake Total 0 400 Output Total Balance 0 400 Intake, Oral 0 400 Patient 339 lb Weight Physical Exam General Appearance: Alert, Oriented X3, Cooperative, No Acute Distress Skin: Right great toe ulceration with erythema. Noted drainage. HEENT: Atraumatic, Mucous Membr. moist/pink Neck: Supple Cardiovascular: Regular Rate, Normal S1, Normal S2, No Murmurs Lungs: Decreased breath sounds bilaterally 2/2 body habitus Abdomen: Normal Bowel Sounds, Soft, No Tenderness, Obese Neurological: Normal Speech, Strength at 5/5 X4 Ext, Normal Tone Extremities: No Clubbing, No Cyanosis Current Medications: Current Medications Sig/Gerard Start time Last Medication Dose Route Stop Time Status Admin Acetaminophen 650 MG Q6P PRN 12/14 0945 AC PO Alprazolam 0.25 MG 4 TIMES/DAY 12/14 1630 AC 12/15 PO 12/21 1629 2159 Enoxaparin Sodium 40 MG DAILY 12/15 1000 AC SC Ferrous Sulfate 325 MG DAILY 12/15 1000 AC 12/15 PO 1006 Glipizide 10 MG DAILY AC 12/14 0900 AC 12/15 PO 0616 Insulin Aspart 0 TIDAC 12/14 1200 DC 12/15 SC 12/16 0000 1813 Insulin Detemir 4 UNITS BID 12/14 2200 AC 12/15 SC 2159 Insulin Human Regular 0 Q6 12/16 0600 DC SC Insulin Human Regular 0 Q6 12/16 0000 AC 12/16 SC 0624 Losartan Potassium 100 MG DAILY 12/14 1000 AC 12/15 PO 1005 Morphine Sulfate 4 MG Q4P PRN 12/14 0845 AC IV Omeprazole 20 MG DAILY AC 12/15 0700 AC 12/15 PO 0616 Oxycodone HCl 5 MG Q6P PRN 12/14 0845 AC PO Sertraline HCl 250 MG DAILY 12/14 1000 AC 12/15 PO 1005 Last 24 Hrs of Lab/Umang Results Last 24 Hrs of Labs/Mics: Laboratory Tests 12/16/16 0620: CBC w Diff NO MAN DIFF REQ, RBC 5.08, MCV 75.8 L, MCH 25.6 L, RDW 14.1, MPV 8.8, Gran % 75.8 H, Lymphocytes % 16.2 L, Monocytes % 5.6, Eosinophils % 2.0, Basophils % 0.4, Absolute Granulocytes 6.5, Absolute Lymphocytes 1.4, Absolute Monocytes 0.5, Absolute Eosinophils 0.2, Absolute Basophils 0, PUBS MCHC 33.8 Orders Miscellaneous Findings: EXAMINATION: MRI FOOT WITHOUT AND WITH CONTRAST, RIGHT CLINICAL INFORMATION: Osteomyelitis. Ulcer right great toe plantar aspect. COMPARISON: None. TECHNIQUE: MRI the right foot was performed before and after contrast. Contrast dose 20 mL of Gadavist given intravenously. The examination is technically compromised because of patient movement throughout the examination despite repeating multiple sequences. Patient could not hold still throughout the exam. The field of view is limited to the forefoot given the clinical indication. FINDINGS: Despite the limitation because of motion artifact, there is some diagnostic information on the examination. Great Toe: There is abnormal signal and enhancement in the subcutaneous soft tissues, most prominent along the medial plantar aspect of the toe at the level of the distal phalanx. The abnormal signal extends from the superficial portion of the soft tissues to the bone. This abnormal signal is dark on T1 bright on T2. There is some signal void superficially which may reflect an ulcer or air in the soft tissues. There is concomitant abnormal signal throughout the distal phalanx and proximal phalanx crossing the IP joint where there is also a moderate joint effusion. Concomitant enhancement of the bone corresponding to the areas of bone marrow edema. No definite bone destruction or erosion. There is additional generalized abnormal signal in the subcutaneous soft tissues with some minimal heterogeneous enhancement throughout the forefoot compatible with edema, cellulitis or a combination of both. Muscles/Tendons: There is abnormal signal diffusely throughout with some possible mild heterogeneous enhancement compatible with edema and/or myositis. No focal fluid collection identified. Joint Fluid/Bursa: As noted above, there is a moderate effusion of the IP joint of the great toe and a mild effusion of the first metacarpophalangeal joint. Otherwise unremarkable. Neurovascular Structures: Unremarkable. Ligaments: Unremarkable. IMPRESSION: Limited examination as the patient was moving throughout the examination resulting in motion artifact. Despite this, there is some diagnostic information available. Findings compatible with ulceration and/or soft tissue infection/cellulitis overlying the plantar medial aspect of the distal phalanx, possibly with an ulcer and/or small superficial sinus tract. There is concomitant abnormal signal within the distal phalanx and proximal phalanx crossing the IP joint which likely reflects osteomyelitis and septic arthritis in the clinical scenario presented. No clear bone erosion or destruction on the examination. However, the findings likely reflect early osteomyelitis prior to a morphologic abnormality. Other noninfectious inflammatory arthropathy could result in the same appearance but typically are not associated with overlying soft tissue changes as described. Additional abnormality in the subcutaneous soft tissues of the forefoot could reflect edema, cellulitis or a combination of the two. Additionally, there is abnormal signal in the muscles of the forefoot, likely reflecting edema and/or myositis. Assessment/Plan Assessment: Mr. Rosario is a pleasant 36 year old male with PMH DM, HTN, anxitey and depression who presented to [facility] on 12/14/16 with chief complaint of swelling and ulceration of his right large toe. This ulceration has been present for at least 5 months, but recently it has been associated with fever to 100.5, chills weakness and erythema. In the ED: Vitals showed T 98.1, HR 113, RR 18, BP 167/109 and O2 saturation of 99% on RA. Labs were significant for WBC 11.7 without bandemia, H&H 13.4/39.8, Na 132, ESR 109, BUN 22, blood sugar 350, Fe 24. Patient was admitted to the general medicine floor and the following is the management: 1. Right great toe osteomyelitis * Initial toe Xray suggestive of osteomyelitis, MRI yesterday suggestive of osteomyelitis with possible joint septic arthritis; also noted were possible sinus tracts * Patient currently off antibiotics pending OR with Dr. Luis today (will follow up bone biopsy post op) * NPO currently, will restart diet post-op * ID consult appreciated, suggested patient begin Cefazolin 2 g IV every 8 hours postop pending OR cultures * Patient currently remains afebrile, monitor for fevers * BC x 2 sent, NGTD, f/u final results * Pain control with morphine for severe pain, roxicodone for moderate pain, and tylenol for mild pain 2. HTN, HLD * Continue losartan 100 mg PO daily 3. Diabetes mellitus * HgA1C ordered, elevated to 12.9 * Continue NSS and glipizide, levemir 4 U SC BID * Accuchecks TIDAC/HS * Endocrinology consult placed for today, will f/u recommendations * Patient counseled on weight loss and needing strict diet to better control FSGs 4. Anxiety/depression * Continue zoloft 250 mg PO daily * Continue xanax QID 0.25 mg as needed for anxiety 4. Microcytic anemia * NO active signs of bleeding * Fe level noted to be low * Ferrous sulfate started, will continue FULL CODE Regular diet Mild-severe pain pathway DVTP: Lovenox Problem List: 1. Osteomyelitis of toe of right foot 2. Uncontrolled diabetes mellitus Pain Ratin Pain Location: Right great toe Pain Goal: Pain 4 or less Pain Plan: Tylenol for mild pain, roxicodone for mdoerate, morphine for severe pain. Tomorrow's Labs & Rationales: CBC (monitor WBC count and H&H post-op), BEP (increasing K).
[2016-12-16 08:00] LABS: ABSOLUTE BASOPHIL COUNT 0 /CUMM (0.0-0.2); ABSOLUTE EOSINOPHIL COUNT 0.2 /CUMM (0.0-0.7); ABSOLUTE GRANULOCYTE CT 6.5 /CUMM (1.4-6.5); ABSOLUTE LYMPH COUNT 1.4 /CUMM (1.2-3.4); ABSOLUTE MONOCYTE COUNT 0.5 /CUMM (0.10-0.60); BASOPHIL % 0.4 % (0.0-2.0); GRANULOCYTE % 75.8 % (42.2-75.2); HEMATOCRIT 38.5 % (42-52); MEAN CORPUSCULAR HGB 25.6 PG (27.0-31.0); MEAN CORPUSCULAR HGB CONC 33.8 G/DL (33.0-37.0); MEAN CORPUSCULAR VOLUME 75.8 FL (80.0-94.0); MEAN PLATELET VOLUME 8.8 FL (7.4-10.4); PLATELET COUNT 249 /CUMM (130-400); RBC DISTRIBUTION WIDTH 14.1 % (11.5-14.5); RED BLOOD CELL CT 5.08 /CUMM (4.70-6.10); WHITE BLOOD CELL COUNT 8.6 /CUMM (4.8-10.8)
[2016-12-16 08:09] VITALS: BP 132/70
--- NOTE | 2016-12-16 12:49 | Cons- Endocrinology ---
General Information and HPI Consulting Request Date of Consult: 12/16/16 Requested By: medical team Reason for Consult: DM management Source of Information: old records History of Present Illness: 36-year-old man with past medical history of uncontrolled diabetes type 2 with HbA1c of 12.9%, hypertension, anxiety, depression came to the hospital for chief complaint of swelling, ulcer of the right big toe. He was diagnosed with osteomyelitis. He underwent surgical procedure this afternoon. At home, he was on metformin 1000 mg bid, glipizide 10 mg daily. He was put on levemir 20 units daily. But he hasn't started it yet. Allergies/Medications Allergies: Coded Allergies: penicillin G (RASH 12/14/16) Home Med List: Alprazolam (Alprazolam ER) 1 MG TAB.ER.24H 1 TAB PO DAILY MENTAL HEALTH ( Reported) Cholecalciferol (Vitamin D3) (Vitamin D) 2,000 UNIT CAPSULE 5,000 UNIT PO DAILY VITAMIN SUPPORT (Reported) Esomeprazole (Nexium) 40 MG CAPSULE.DR 1 CAP PO DAILY gerd (Reported) Glipizide (Glipizide ER) 10 MG TAB.ER.24 1 TAB PO DAILY DIABETES (Reported) Losartan Potassium 100 MG TABLET 1 TAB PO DAILY HEART HEALTH (Reported) Metformin HCl 500 MG TABLET 2 TAB PO BID DIABETES (Reported) Multivitamin (Daily Multiple Vitamin) 1 EACH TABLET 1 TAB PO DAILY VITAMIN SUPPORT (Reported) Sertraline HCl 100 MG TABLET 2.5 TAB PO DAILY MENTAL HEALTH (Reported) Review of Systems Review of Systems Constitutional: Reports: see HPI (overweight). Cardiovascular: Denies: chest pain. Respiratory: Denies: short of breath. GI: Denies: abdominal pain. Hematologic/Endocrine: Denies: polyuria, polydipsia. 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 Psychosocial History Where Do You Live? Home Services at Home: None Smoking Status: Never Smoked ETOH Use: denies use Illicit Drug Use: denies illicit drug use Exam & Diagnostic Data Last 24 Hrs of Vital Signs/I&O Vital Signs Date Time Temp Pulse Resp B/P Pulse O2 O2 Flow FiO2 Ox Delivery Rate 12/16 1613 98.3 100 19 140/84 96 12/16 7853 611 3652/70 12/16 0809 98.6 102 20 132/70 95 Room Air 12/16 0001 98.8 100 20 140/86 96 Room Air Intake & Output 12/16 1600 12/16 0800 12/16 0000 Intake Total 0 400 Output Total Balance 0 400 Intake, Oral 0 400 Patient 339 lb Weight Physical Exam General Appearance: no apparent distress, obese Neck: normal inspection Respiratory: lungs clear Cardiovascular: regular rate/rhythm Gastrointestinal: soft, distention Extremities: s/p surgical procedure. Labs/Umang Results: Laboratory Tests 12/16 12/15 0620 0745 Chemistry Sodium (137 - 145 mmol/L) 138 Potassium (3.5 - 5.1 mmol/L) 5.1 Chloride (98 - 107 mmol/L) 97 L Carbon Dioxide (22 - 30 mmol/L) 29 Anion Gap (5 - 16) 11 BUN (9 - 20 mg/dL) 20 Creatinine (0.7 - 1.2 mg/dL) 0.9 Estimated GFR (>60 ml/min) > 60 BUN/Creatinine Ratio (7 - 25 %) 22.2 Hematology CBC w Diff NO MAN DIFF REQ NO MAN DIFF REQ WBC (4.8 - 10.8 /CUMM) 8.6 10.8 RBC (4.70 - 6.10 /CUMM) 5.08 5.00 Hgb (14.0 - 18.0 G/DL) 13.0 L 12.9 L Hct (42 - 52 %) 38.5 L 38.4 L MCV (80.0 - 94.0 FL) 75.8 L 76.8 L MCH (27.0 - 31.0 PG) 25.6 L 25.9 L RDW (11.5 - 14.5 %) 14.1 14.2 Plt Count (130 - 400 /CUMM) 249 236 MPV (7.4 - 10.4 FL) 8.8 9.3 Gran % (42.2 - 75.2 %) 75.8 H 81.4 H Lymphocytes % (20.5 - 51.1 %) 16.2 L 12.1 L Monocytes % (1.7 - 9.3 %) 5.6 4.7 Eosinophils % (0 - 5 %) 2.0 1.5 Basophils % (0.0 - 2.0 %) 0.4 0.3 Absolute Granulocytes (1.4 - 6.5 /CUMM) 6.5 8.8 H Absolute Lymphocytes (1.2 - 3.4 /CUMM) 1.4 1.3 Absolute Monocytes (0.10 - 0.60 /CUMM) 0.5 0.5 Absolute Eosinophils (0.0 - 0.7 /CUMM) 0.2 0.2 Absolute Basophils (0.0 - 0.2 /CUMM) 0 0 PUBS MCHC (33.0 - 37.0 G/DL) 33.8 33.7 02/06 0600 Chemistry Hemoglobin A1c (<5.7) 12.9 H Assessment/Plan Assessment/Plan 36-year-old man with past medical history of uncontrolled diabetes type 2 with HbA1c of 12.9%, hypertension, anxiety, depression came to the hospital for chief complaint of swelling, ulcer of the right big toe. He was diagnosed with osteomyelitis. He underwent surgical procedure this afternoon. DM management: 1. increase Levemir to 12 units twice a day; 2. adjust Novolog coverage before meals and add on Novolog coverage at bedtime-- detail see the insulin orders; 3. monitor FSGs. 4. will restart him on metformin probably tomorrow. 5. will consider putting him on GLP-1 analog as outpatient. will follow. Inpatient Diabetes Orders Before Each Meal: Bolus Insulin: Novolog < 80 mg/dl: no coverage 80-100 mg/dl: 3 units 101-120 mg/dl: 3 units 121-150 mg/dl: 3 units 151-200 mg/dl: 5 units 201-250 mg/dl: 7 units 251-300 mg/dl: 9 units 301-350 mg/dl: 11 units 351-400 mg/dl: 13 units > 400 mg/dl: 15 units Bedtime: Bolus Insulin: Novolog < 80 mg/dl: no coverage 80-100 mg/dl: no coverage 101-120 mg/dl: no coverage 121-150 mg/dl: no coverage 151-200 mg/dl: no coverage 201-250 mg/dl: no coverage 251-300 mg/dl: 2 units 301-350 mg/dl: 3 units 351-400 mg/dl: 4 units > 400 mg/dl: 5 units Consult Acknowledgment - Thank you for your consult request.
--- NOTE | 2016-12-16 13:32 | Operative Report ---
Operative/Inv Procedure Report Surgery Date: 12/16/16 Name of Procedure: 1 open incision and drainage deep to the D fashion with exposure of the extensor and flexor tendon and tendon sheath multiple sites right foot 2 partial first ray resection right foot 3 intraoperative administration of ankle block anesthesia 4 excisional debridement Pre-Operative Diagnosis: 1 open necrotic wound right foot 2 osteomyelitis right foot 3 diabetic peripheral neuropathy Post-Operative Diagnosis: The same Estimated Blood Loss: less than 50ml Surgeon/Gas Transfer Operator: LEONCIO MISHRA DPM Anesthesia: moderate sedation, block Operative/Procedure Note Note: After obtaining informed consent the patient was brought to the operating room and placed on the operating table in the supine position. The patient isn't securely fastened to the operating table utilizing safety belt. After administration of negative mask airway anesthesia 10 mL of 0.5% Marcaine plain was infiltrated about the patient's right ankle. Right foot and ankle then scrubbed prepped and draped in usual aseptic manner. Digitorectal plantar right foot where a large full-thickness chronic was identified. A 15 blade was utilized sharply revised skin margins. Dissection was then carried down deep to the D fashion with exposure of the flexor tendon and tendon sheath multiple sites, both proximally and distally. All necrotic nonviable infected tissue sharply evacuated from the wound bed. A racquet-type incision encompassing the distal first ray was then marked out a skin marker and the digit was done disarticulated from the joint. Specimen was harvested for both microbiologic and pathologic inspection. Nipple was then irrigated with 3 L normal sterile saline fissure 50,000 units of bacitracin. Following this the foot was redraped and the surgeon's top was changed clean gloves. Any bleeding vessels identified were cauterized or ligated as encountered. The wound was then packed with half- inch iodoform and 3-0 nylon retention sutures were placed. The foot was then dressed with 4 x 4's Kerlix and an Donald wrap. The patient was noted to tolerate both procedure and anesthesia well and the patient was transported from the operating room to recovery by sent stable.
--- NOTE | 2016-12-16 14:48 | Patient Discharge Instructions ---
Discharge Instructions General Discharge Information You were seen/treated for: Osteomyelitis of right great toe Uncontrolled diabetes. Special Instructions: Please follow up with your PCP within 1 week of discharge. Please take all medications as directed. Please follow up with Dr. Blanco within 2 weeks for continued management of your diabetes. Please follow up with Dr. Luis within 1 week to monitor your right toe. You may walk heel touch with a surgical shoe we have provided for you. Diet Recommended Diet: Diabetic Activity Activity Self Limited: Yes Acute Coronary Syndrome Inclusion Criteria At DC or during hospital stay patient has or had the following: ACS DIAGNOSIS No Discharge Core Measures Meds if any: Prescribed or Continued at Discharge Meds if any: NOT Prescribed or Continued at Discharge Congestive Heart Failure Inclusion Criteria At DC or during hospital stay patient has or had the following: CHF DIAGNOSIS No Discharge Core Measures Meds if any: Prescribed or Continued at Discharge Meds if any: NOT Prescribed or Continued at Discharge Cerebrovascular accident Inclusion Criteria At DC or during hospital stay patient has or had the following: CVA/TIA Diagnosis No Discharge Core Measures Meds if any: Prescribed or Continued at Discharge Meds if any: NOT Prescribed or Continued at Discharge Venous thromboembolism Inclusion Criteria VTE Diagnosis No VTE Type NONE VTE Confirmed by (Test) NONE Discharge Core Measures - Per Current guidelines, there needs to be overlap - treatment for the first 5 days of Warfarin therapy. - If discharged on Warfarin prior to 5 days of - overlap therapy, the patient will need to be - assessed for post discharge needs including - *Post discharge parental anticoagulation - *Warfarin and/or parental anticoagulation education - *Follow up date to check INR post discharge At least 5 days overlap therapy as Inpatient No Meds if any: Prescribed or Continued at Discharge Note: Overlap Therapy is Warfarin and Anticoagulant Meds if any: NOT Prescribed or Continued at Discharge
[2016-12-16 16:13] VITALS: BP 140/84
--- NOTE | 2016-12-16 16:14 | PN- Infect Dx ---
Subjective Subjective: Afebrile. He notes mild discomfort in the right great toe. Objective Last 24 Hrs of Vital Signs/I&O Vital Signs Date Time Temp Pulse Resp B/P Pulse O2 O2 Flow FiO2 Ox Delivery Rate 12/16 0793 086 6659/70 12/16 0809 98.6 102 20 132/70 95 Room Air 12/16 0001 98.8 100 20 140/86 96 Room Air 12/15 1635 98.8 105 21 146/98 96 Room Air Intake & Output 12/16 1600 12/16 0800 12/16 0000 Intake Total 0 400 Output Total Balance 0 400 Intake, Oral 0 400 Patient 339 lb Weight Physical Exam Other Physical Findings: He appears comfortable in no acute distress Extremities right foot dressing intact Results Last 24 Hours of Lab Results: Laboratory Tests 12/16 619 Hematology CBC w Diff NO MAN DIFF REQ WBC (4.8 - 10.8 /CUMM) 8.6 RBC (4.70 - 6.10 /CUMM) 5.08 Hgb (14.0 - 18.0 G/DL) 13.0 L Hct (42 - 52 %) 38.5 L MCV (80.0 - 94.0 FL) 75.8 L MCH (27.0 - 31.0 PG) 25.6 L RDW (11.5 - 14.5 %) 14.1 Plt Count (130 - 400 /CUMM) 249 MPV (7.4 - 10.4 FL) 8.8 Gran % (42.2 - 75.2 %) 75.8 H Lymphocytes % (20.5 - 51.1 %) 16.2 L Monocytes % (1.7 - 9.3 %) 5.6 Eosinophils % (0 - 5 %) 2.0 Basophils % (0.0 - 2.0 %) 0.4 Absolute Granulocytes (1.4 - 6.5 /CUMM) 6.5 Absolute Lymphocytes (1.2 - 3.4 /CUMM) 1.4 Absolute Monocytes (0.10 - 0.60 /CUMM) 0.5 Absolute Eosinophils (0.0 - 0.7 /CUMM) 0.2 Absolute Basophils (0.0 - 0.2 /CUMM) 0 PUBS MCHC (33.0 - 37.0 G/DL) 33.8 Last 24 Hours of Umang Results: Blood cultures December 14 negative OR culture December 16 pending Assessment/Plan Impression: Stable status post right great toe amputation earlier today for presumed osteomyelitis with temperatures and white blood cell count normal off antibiotics. He can be started on antibiotics pending OR cultures. Have discussed with Podiatry who feels that all the infected bone may have been removed and, therefore, he may not require a prolonged course of IV antibiotics. This will be reevaluated based on his OR cultures, pathology and appearance of the wound when he returns to the OR at the end of this week for wound closure. Suggestion: 1. Follow-up OR cultures 2. Begin Cefazolin 2 g IV every 8 hours pending above
[2016-12-16 23:25] VITALS: BP 142/88
--- NOTE | 2016-12-17 06:58 | PN- Housestaff ---
See Addendum Subjective Follow-up For: Right toe osteomyelitis Subjective: Patient seen and examined at bedside this AM. He reports he feels well and knows that he will be taken back to the OR tomorrow for closure of right foot. He denies much pain at operative site. Review of Systems Constitutional: Denies: chills, fever, malaise. EENTM: Denies: blurred vision, hearing changes, nasal congestion. Cardiovascular: Denies: chest pain, palpitations. Respiratory: Denies: cough, short of breath. Gastrointestinal: Denies: abdominal pain, constipation. Genitourinary: Denies: dysuria. Musculoskeletal: Denies: back pain, joint pain. Skin: Reports: see HPI. Neurological/Psychological: Reports: numbness, paresthesia (Peripheral neuropathy). Denies: anxiety, headache. Hematologic/Endocrine: Denies: polyuria, polydipsia. Objective Last 24 Hrs of Vital Signs/I&O Vital Signs Date Time Temp Pulse Resp B/P Pulse O2 O2 Flow FiO2 Ox Delivery Rate 12/17 0910 98 134/80 12/17 0803 98.6 98 20 134/80 96 Room Air 12/16 2325 98.2 106 20 142/88 94 Room Air 12/16 2319 99.5 103 20 94 12/16 1613 98.3 100 19 140/84 96 Intake & Output 12/17 1600 12/17 0800 12/17 0000 Intake Total 50 380 Output Total Balance 50 380 Intake, IV 50 Intake, Oral 380 Number 1 Bowel Movements Physical Exam General Appearance: Alert, Oriented X3, Cooperative, No Acute Distress Skin: Right foot covered in dry bandage. HEENT: Atraumatic, Mucous Membr. moist/pink Neck: No JVD Cardiovascular: Regular Rate, Normal S1, Normal S2, No Murmurs Lungs: Normal Air Movement, Decreased breath sounds 2/2 body habitus Abdomen: Normal Bowel Sounds, Soft Neurological: Normal Speech, Normal Tone Extremities: No Clubbing, No Cyanosis, No Edema, Right foot s/p debridement and partial amp Current Medications: Current Medications Sig/Gerard Start time Last Medication Dose Route Stop Time Status Admin Acetaminophen 650 MG Q6P PRN 12/14 0945 AC PO Alprazolam 0.25 MG 4 TIMES/DAY 12/14 1630 AC 12/17 PO 12/21 1629 0912 Cefazolin Sodium 2 GM IQ8 12/16 1600 AC 12/17 N/A 1 UNIT IV 0830 Enoxaparin Sodium 40 MG DAILY 12/15 1000 AC 12/17 SC 0912 Ferrous Sulfate 325 MG DAILY 12/15 1000 AC 12/17 PO 0910 Glipizide 10 MG DAILY AC 12/14 0900 DC 12/17 PO 0702 Hydromorphone HCl 2 MG .STK-MED ONE 12/16 1343 DC IM 12/16 1344 Insulin Aspart 0 TIDAC 12/16 1700 DC SC Insulin Aspart 0 TIDAC/HS 12/16 1700 AC 12/17 SC 0831 Insulin Detemir 15 UNITS BID 12/17 1000 AC 12/17 SC 0914 Insulin Detemir 12 UNITS BID 12/16 2200 DC 12/16 SC 2217 Insulin Detemir 4 UNITS BID 12/14 2200 DC 12/16 SC 1053 Insulin Human Regular 0 Q6 12/16 0000 DC 12/16 SC 1207 Losartan Potassium 100 MG DAILY 12/14 1000 AC 12/17 PO 0910 Meperidine HCl 50 MG .STK-MED ONE 12/16 1343 DC IM 12/16 1344 Metformin HCl 1,000 MG 0800,1700 12/17 0900 AC 12/17 PO 1122 Morphine Sulfate 4 MG Q4P PRN 12/14 0945 AC IV Omeprazole 20 MG DAILY AC 12/15 0700 AC 12/17 PO 0701 Oxycodone HCl 5 MG Q6P PRN 12/14 0945 AC PO Patient Medication 1 UNIT 1600 12/16 1600 PR 12/16 Teaching ED 12/16 1601 1742 Sertraline HCl 250 MG DAILY 12/14 1000 AC 12/17 PO 0911 Last 24 Hrs of Lab/Umang Results Last 24 Hrs of Labs/Mics: Laboratory Tests 12/17/16 0650: Anion Gap 13, Estimated GFR > 60, BUN/Creatinine Ratio 25.7 H, CBC w Diff NO MAN DIFF REQ, RBC 5.29, MCV 76.8 L, MCH 25.5 L, RDW 14.1, MPV 8.9, Gran % 74.9 , Lymphocytes % 17.8 L, Monocytes % 4.7, Eosinophils % 2.2, Basophils % 0.4, Absolute Granulocytes 6.6 H, Absolute Lymphocytes 1.6, Absolute Monocytes 0.4, Absolute Eosinophils 0.2, Absolute Basophils 0, PUBS MCHC 33.2 Microbiology 12/16 1310 EXTREMITIE: Culture & Sensitivity - CAN Cancelled: OR SPECIMEN 12/16 1310 EXTREMITIE: Gram Stain - CAN Cancelled: OR SPECIMEN 12/16 1310 EXTREMITIE: Gross Specimen Examination - RES GRAM POSITIVE COCCI 12/16 1310 EXTREMITIE: Gram Stain - RES Orders Radiology Findings: Foot MRI: IMPRESSION: Limited examination as the patient was moving throughout the examination resulting in motion artifact. Despite this, there is some diagnostic information available. Findings compatible with ulceration and/or soft tissue infection/cellulitis overlying the plantar medial aspect of the distal phalanx, possibly with an ulcer and/or small superficial sinus tract. There is concomitant abnormal signal within the distal phalanx and proximal phalanx crossing the IP joint which likely reflects osteomyelitis and septic arthritis in the clinical scenario presented. No clear bone erosion or destruction on the examination. However, the findings likely reflect early osteomyelitis prior to a morphologic abnormality. Other noninfectious inflammatory arthropathy could result in the same appearance but typically are not associated with overlying soft tissue changes as described. Additional abnormality in the subcutaneous soft tissues of the forefoot could reflect edema, cellulitis or a combination of the two. Additionally, there is abnormal signal in the muscles of the forefoot, likely reflecting edema and/or myositis. Assessment/Plan Assessment: Mr. Rosario is a pleasant 36 year old male with PMH DM, HTN, anxitey and depression who presented to [facility] on 12/14/16 with chief complaint of swelling and ulceration of his right large toe. This ulceration has been present for at least 5 months, but recently it has been associated with fever to 100.5, chills weakness and erythema. In the ED: Vitals showed T 98.1, HR 113, RR 18, BP 167/109 and O2 saturation of 99% on RA. Labs were significant for WBC 11.7 without bandemia, H&H 13.4/39.8, Na 132, ESR 109, BUN 22, blood sugar 350, Fe 24. Patient was admitted to the general medicine floor and the following is the management: 1. Right great toe osteomyelitis * Initial toe Xray suggestive of osteomyelitis, MRI yesterday suggestive of osteomyelitis with possible joint septic arthritis; also noted were possible sinus tracts * Patient POD#1 debridement/partial resection first ray right food * Patient currently on IV cefazolin 2gm Q8 pending OR culture results * ID consult appreciated, suggested continuing Cefazolin 2 g IV every 8 hours pending OR cultures * Patient currently remains afebrile, monitor for fevers * BC x 2 sent, NGTD, f/u final results * Extremity specimin shows gram + cocci, follow up final results * Pain control with morphine for severe pain, roxicodone for moderate pain, and tylenol for mild pain * Patient to be made NPO at midnight for OR tomorrow for closure of wound by Dr. Luis 2. HTN, HLD * Continue losartan 100 mg PO daily 3. Diabetes mellitus * HgA1C ordered, elevated to 12.9 * Endo consult with Dr. Blanco appreciated, will continue to follow recommendations * Diabetic regimen changed to levemir 15 U SC BID, metformin 1000 mg BID and high dose NSS * Accuchecks TIDAC/HS * Patient counseled on weight loss and needing strict diet to better control FSGs 4. Anxiety/depression * Continue zoloft 250 mg PO daily * Continue xanax QID 0.25 mg as needed for anxiety 4. Microcytic anemia * NO active signs of bleeding * Fe level noted to be low * Ferrous sulfate started, will continue FULL CODE Regular diet Mild-severe pain pathway DVTP: Lovenox Problem List: 1. Osteomyelitis of toe of right foot 2. Uncontrolled diabetes mellitus Pain Ratin Pain Location: n/a Pain Goal: Remain pain free Pain Plan: Tylenol for mild pain, roxicodone for moderate pain, morphine for severe pain. Tomorrow's Labs & Rationales: CBC (pre-op, infection/osteomyelitis)
[2016-12-17 07:57] LABS: ABSOLUTE BASOPHIL COUNT 0 /CUMM (0.0-0.2); ABSOLUTE EOSINOPHIL COUNT 0.2 /CUMM (0.0-0.7); ABSOLUTE GRANULOCYTE CT 6.6 /CUMM (1.4-6.5); ABSOLUTE LYMPH COUNT 1.6 /CUMM (1.2-3.4); ABSOLUTE MONOCYTE COUNT 0.4 /CUMM (0.10-0.60); BASOPHIL % 0.4 % (0.0-2.0); EOSINOPHIL % 2.2 % (0-5); GRANULOCYTE % 74.9 % (42.2-75.2); HEMATOCRIT 40.6 % (42-52); MEAN CORPUSCULAR HGB 25.5 PG (27.0-31.0); MEAN CORPUSCULAR HGB CONC 33.2 G/DL (33.0-37.0); MEAN CORPUSCULAR VOLUME 76.8 FL (80.0-94.0); MEAN PLATELET VOLUME 8.9 FL (7.4-10.4); PLATELET COUNT 272 /CUMM (130-400); RBC DISTRIBUTION WIDTH 14.1 % (11.5-14.5); RED BLOOD CELL CT 5.29 /CUMM (4.70-6.10); WHITE BLOOD CELL COUNT 8.9 /CUMM (4.8-10.8)
[2016-12-17 08:03] VITALS: BP 134/80
--- NOTE | 2016-12-17 08:55 | PN- Diabetes ---
Assessment/Plan Assessment: 36-year-old man with past medical history of uncontrolled diabetes type 2 with HbA1c of 12.9%, hypertension, anxiety, depression came to the hospital for chief complaint of swelling, ulcer of the right big toe. He was diagnosed with osteomyelitis. He underwent surgical procedure on 12/16/2016. He was put on Levemir 12 units twice a day, Novolog coverage before meals and Novolog coverage at bedtime. His FSGs were 247, 287, 237 and 257. Plan: 1. increase Levemir to 15 units twice a day; 2. restart metformin 1000 mg twice a day; 3. continue ashley current Novolog coverage before meals and Novoloh coverage at bedtime;\ 4, monitor FSGs; will follow. Subjective Subjective: His glucose level is still in the 200s. Objective Last 24 Hrs of Vital Signs/I&O Vital Signs Date Time Temp Pulse Resp B/P Pulse O2 O2 Flow FiO2 Ox Delivery Rate 12/17 0803 98.6 98 20 134/80 96 Room Air 12/16 2325 98.2 106 20 142/88 94 Room Air 12/16 2319 99.5 103 20 94 12/16 1613 98.3 100 19 140/84 96 12/16 6124 707 4654/70 Intake & Output 12/17 1600 12/17 0800 12/17 0000 Intake Total 50 380 Output Total Balance 50 380 Intake, IV 50 Intake, Oral 380 Number 1 Bowel Movements Findings Pertinent Lab/Umang Results: Laboratory Tests 12/17 0650 Chemistry Sodium (137 - 145 mmol/L) 138 Potassium (3.5 - 5.1 mmol/L) 4.6 Chloride (98 - 107 mmol/L) 99 Carbon Dioxide (22 - 30 mmol/L) 26 Anion Gap (5 - 16) 13 BUN (9 - 20 mg/dL) 18 Creatinine (0.7 - 1.2 mg/dL) 0.7 Estimated GFR (>60 ml/min) > 60 BUN/Creatinine Ratio (7 - 25 %) 25.7 H Hematology CBC w Diff NO MAN DIFF REQ WBC (4.8 - 10.8 /CUMM) 8.9 RBC (4.70 - 6.10 /CUMM) 5.29 Hgb (14.0 - 18.0 G/DL) 13.5 L Hct (42 - 52 %) 40.6 L MCV (80.0 - 94.0 FL) 76.8 L MCH (27.0 - 31.0 PG) 25.5 L RDW (11.5 - 14.5 %) 14.1 Plt Count (130 - 400 /CUMM) 272 MPV (7.4 - 10.4 FL) 8.9 Gran % (42.2 - 75.2 %) 74.9 Lymphocytes % (20.5 - 51.1 %) 17.8 L Monocytes % (1.7 - 9.3 %) 4.7 Eosinophils % (0 - 5 %) 2.2 Basophils % (0.0 - 2.0 %) 0.4 Absolute Granulocytes (1.4 - 6.5 /CUMM) 6.6 H Absolute Lymphocytes (1.2 - 3.4 /CUMM) 1.6 Absolute Monocytes (0.10 - 0.60 /CUMM) 0.4 Absolute Eosinophils (0.0 - 0.7 /CUMM) 0.2 Absolute Basophils (0.0 - 0.2 /CUMM) 0 PUBS MCHC (33.0 - 37.0 G/DL) 33.2
--- NOTE | 2016-12-17 12:57 | PN- Infect Dx ---
Subjective Subjective: Afebrile without complaints Objective Last 24 Hrs of Vital Signs/I&O Vital Signs Date Time Temp Pulse Resp B/P Pulse O2 O2 Flow FiO2 Ox Delivery Rate 12/17 0910 98 134/80 12/17 0803 98.6 98 20 134/80 96 Room Air 12/16 2325 98.2 106 20 142/88 94 Room Air 12/16 2319 99.5 103 20 94 12/16 1613 98.3 100 19 140/84 96 Intake & Output 12/17 1600 12/17 0800 12/17 0000 Intake Total 50 380 Output Total Balance 50 380 Intake, IV 50 Intake, Oral 380 Number 1 Bowel Movements Physical Exam Other Physical Findings: He appears comfortable in no acute distress Extremities right foot dressing intact Results Last 24 Hours of Lab Results: Laboratory Tests 12/17 0550 Chemistry Sodium (137 - 145 mmol/L) 138 Potassium (3.5 - 5.1 mmol/L) 4.6 Chloride (98 - 107 mmol/L) 99 Carbon Dioxide (22 - 30 mmol/L) 26 Anion Gap (5 - 16) 13 BUN (9 - 20 mg/dL) 18 Creatinine (0.7 - 1.2 mg/dL) 0.7 Estimated GFR (>60 ml/min) > 60 BUN/Creatinine Ratio (7 - 25 %) 25.7 H Hematology CBC w Diff NO MAN DIFF REQ WBC (4.8 - 10.8 /CUMM) 8.9 RBC (4.70 - 6.10 /CUMM) 5.29 Hgb (14.0 - 18.0 G/DL) 13.5 L Hct (42 - 52 %) 40.6 L MCV (80.0 - 94.0 FL) 76.8 L MCH (27.0 - 31.0 PG) 25.5 L RDW (11.5 - 14.5 %) 14.1 Plt Count (130 - 400 /CUMM) 272 MPV (7.4 - 10.4 FL) 8.9 Gran % (42.2 - 75.2 %) 74.9 Lymphocytes % (20.5 - 51.1 %) 17.8 L Monocytes % (1.7 - 9.3 %) 4.7 Eosinophils % (0 - 5 %) 2.2 Basophils % (0.0 - 2.0 %) 0.4 Absolute Granulocytes (1.4 - 6.5 /CUMM) 6.6 H Absolute Lymphocytes (1.2 - 3.4 /CUMM) 1.6 Absolute Monocytes (0.10 - 0.60 /CUMM) 0.4 Absolute Eosinophils (0.0 - 0.7 /CUMM) 0.2 Absolute Basophils (0.0 - 0.2 /CUMM) 0 PUBS MCHC (33.0 - 37.0 G/DL) 33.2 Last 24 Hours of Umang Results: Blood cultures 2 December 14 remain negative OR culture December 16 labeled first right toe positive for mixed gram-positive cocci Assessment/Plan Impression: Stable status post right great toe amputation yesterday for presumed osteomyelitis with temperatures and white blood cell count remaining normal now on Cefazolin empirically pending the OR culture, which is so far growing mixed gram-positive cocci. Have discussed with Podiatry who feels that all of the infected bone may have been removed and, therefore, he may not require a prolonged course of IV antibiotics. This will be reevaluated based on his OR cultures, pathology and appearance of the wound when he returns to the OR at the end of this week for wound closure. Suggestion: 1. Follow-up final OR culture and pathology 2. Continue Cefazolin pending above
--- NOTE | 2016-12-17 14:44 | NUR ---
PHYSICAL THERAPY- CONSULT RECEIVED, CHART REVIEWED. PER MDRs, PT INDEPENDENTLY MOBILIZING W/O DIFFICULTY POST-OP. NO SKILLED ACUTE P.T NEEDS IDENTIFIED, WILL NOT FOLLOW.
[2016-12-17 16:08] VITALS: BP 152/92
[2016-12-17 23:30] VITALS: BP 129/69
--- NOTE | 2016-12-18 07:47 | PN- Housestaff ---
See Addendum Subjective Follow-up For: Osteomyelitis, right great toe Uncontrolled DM Subjective: Patient seen and examined at bedside this AM. He seems mildly anxious about going to the OR again today, though he is happy his foot will likely be closed. Patient reports he has been ambulating and his pain is minimal, rated a 2/10. Review of Systems Constitutional: Denies: chills, fever, malaise. EENTM: Denies: blurred vision, visual changes, hearing changes. Cardiovascular: Denies: chest pain, palpitations. Respiratory: Denies: cough, short of breath. Gastrointestinal: Denies: abdominal pain, constipation, nausea, vomiting. Genitourinary: Denies: dysuria. Musculoskeletal: Reports: joint pain (2/10 right great toe). Denies: back pain. Skin: Reports: lesions (Right great to). Denies: change in skin color, change in hair /nails. Neurological/Psychological: Denies: confusion, headache. Hematologic/Endocrine: Denies: bruising, bleeding. Immunologic/Allergic: Denies: splenectomy. Objective Last 24 Hrs of Vital Signs/I&O Vital Signs Date Time Temp Pulse Resp B/P Pulse O2 O2 Flow FiO2 Ox Delivery Rate 12/18 0843 98.0 98 18 126/70 97 Room Air 12/17 2330 97.8 97 18 129/69 97 Room Air 12/17 1608 98.4 113 20 152/92 98 Room Air 12/17 0910 98 134/80 Intake & Output 12/18 1600 12/18 0800 12/18 0000 Intake Total 0 400 Output Total Balance 0 400 Intake, Oral 0 400 Physical Exam General Appearance: Alert, Oriented X3, Cooperative, No Acute Distress Skin: RLE dry dressing. HEENT: Atraumatic, Mucous Membr. moist/pink Neck: Supple, No JVD Lymphatic: Cervical nl Cardiovascular: Regular Rate, Normal S1, Normal S2, No Murmurs Lungs: Normal Air Movement Abdomen: Normal Bowel Sounds, Soft, No Tenderness Neurological: Normal Speech, Normal Tone Extremities: No Clubbing, No Cyanosis Current Medications: Current Medications Sig/Gerard Start time Last Medication Dose Route Stop Time Status Admin Acetaminophen 650 MG Q6P PRN 12/14 0945 AC PO Alprazolam 0.25 MG 4 TIMES/DAY 12/14 1630 AC 12/17 PO 12/21 1629 2246 Cefazolin Sodium 2 GM IQ8 12/16 1600 AC 12/18 N/A 1 UNIT IV 0025 Enoxaparin Sodium 40 MG DAILY 12/15 1000 AC 12/17 SC 0912 Ferrous Sulfate 325 MG DAILY 12/15 1000 AC 12/17 PO 0910 Glipizide 10 MG DAILY AC 12/14 0900 DC 12/17 PO 0702 Insulin Aspart 0 TIDAC/HS 12/16 1700 DC 12/17 SC 12/18 0200 1714 Insulin Detemir 15 UNITS BID 12/17 1000 AC 12/17 SC 0914 Insulin Detemir 12 UNITS BID 12/16 2200 DC 12/16 SC 2217 Insulin Human Regular 0 Q6 12/18 0600 AC SC Losartan Potassium 100 MG DAILY 12/14 1000 AC 12/17 PO 0910 Metformin HCl 1,000 MG 0800,1700 12/17 0900 AC 12/17 PO 1713 Morphine Sulfate 4 MG Q4P PRN 12/14 0945 AC IV Omeprazole 20 MG DAILY AC 12/15 0700 AC 12/17 PO 0701 Oxycodone HCl 5 MG Q6P PRN 12/14 0945 AC PO Patient Medication 1 ED .STK-MED ONE 12/17 1352 AL Teaching ED 12/17 1353 Sertraline HCl 250 MG DAILY 12/14 1000 AC 12/17 PO 0911 Last 24 Hrs of Lab/Umang Results Last 24 Hrs of Labs/Mics: Laboratory Tests 12/18/16 0632: CBC w Diff NO MAN DIFF REQ, RBC 4.89, MCV 76.7 L, MCH 25.5 L, RDW 14.4, MPV 8.6, Gran % 74.7, Lymphocytes % 17.5 L, Monocytes % 4.7, Eosinophils % 2.7, Basophils % 0.4, Absolute Granulocytes 6.0, Absolute Lymphocytes 1.4, Absolute Monocytes 0.4, Absolute Eosinophils 0.2, Absolute Basophils 0, PUBS MCHC 33.2 Orders Miscellaneous Findings: Foot MRI: IMPRESSION: Limited examination as the patient was moving throughout the examination resulting in motion artifact. Despite this, there is some diagnostic information available. Findings compatible with ulceration and/or soft tissue infection/cellulitis overlying the plantar medial aspect of the distal phalanx, possibly with an ulcer and/or small superficial sinus tract. There is concomitant abnormal signal within the distal phalanx and proximal phalanx crossing the IP joint which likely reflects osteomyelitis and septic arthritis in the clinical scenario presented. No clear bone erosion or destruction on the examination. However, the findings likely reflect early osteomyelitis prior to a morphologic abnormality. Other noninfectious inflammatory arthropathy could result in the same appearance but typically are not associated with overlying soft tissue changes as described. Additional abnormality in the subcutaneous soft tissues of the forefoot could reflect edema, cellulitis or a combination of the two. Additionally, there is abnormal signal in the muscles of the forefoot, likely reflecting edema and/or myositis. Assessment/Plan Assessment: Mr. Rosario is a pleasant 36 year old male with PMH DM, HTN, anxitey and depression who presented to [place] on 12/14/16 with chief complaint of swelling and ulceration of his right large toe. This ulceration has been present for at least 5 months, but recently it has been associated with fever to 100.5, chills weakness and erythema. In the ED: Vitals showed T 98.1, HR 113, RR 18, BP 167/109 and O2 saturation of 99% on RA. Labs were significant for WBC 11.7 without bandemia, H&H 13.4/39.8, Na 132, ESR 109, BUN 22, blood sugar 350, Fe 24. Patient was admitted to the general medicine floor and the following is the management: 1. Right great toe osteomyelitis * Initial toe Xray suggestive of osteomyelitis, MRI confirmatory for osteomyelitis with possible joint septic arthritis; also noted were possible sinus tracts * Patient POD#2 debridement/partial resection first ray right food * Patient currently on IV cefazolin 2gm Q8 pending OR culture results * ID consult appreciated, suggested continuing Cefazolin 2 g IV every 8 hours pending OR cultures * Patient currently remains afebrile, monitor for fevers * BC x 2 sent, NGTD, f/u final results * Extremity specimin shows gram + cocci, follow up final results * Pain control with morphine for severe pain, roxicodone for moderate pain, and tylenol for mild pain * Patient currently NPO for OR today for closure of wound by Dr. Luis 2. HTN, HLD * Continue losartan 100 mg PO daily 3. Diabetes mellitus * HgA1C ordered, elevated to 12.9 * Endo consult with Dr. Blanco appreciated, will continue to follow recommendations * Diabetic regimen changed to levemir 15 U SC BID, metformin 1000 mg BID and high dose NSS * Accuchecks TIDAC/HS * Patient counseled on weight loss and needing strict diet to better control FSGs 4. Anxiety/depression * Continue zoloft 250 mg PO daily * Continue xanax QID 0.25 mg as needed for anxiety 4. Microcytic anemia * NO active signs of bleeding * Fe level noted to be low * Ferrous sulfate started, will continue FULL CODE Regular diet Mild-severe pain pathway DVTP: Lovenox Problem List: 1. Osteomyelitis of toe of right foot 2. Uncontrolled diabetes mellitus Pain Ratin Pain Location: Right great toe Pain Goal: Remain pain free Pain Plan: Tylenol for mild pain, roxicodone for moderate, morphine for severe pain. Tomorrow's Labs & Rationales: CBC (post-op).
[2016-12-18 08:08] LABS: ABSOLUTE BASOPHIL COUNT 0 /CUMM (0.0-0.2); ABSOLUTE EOSINOPHIL COUNT 0.2 /CUMM (0.0-0.7); ABSOLUTE LYMPH COUNT 1.4 /CUMM (1.2-3.4); ABSOLUTE MONOCYTE COUNT 0.4 /CUMM (0.10-0.60); BASOPHIL % 0.4 % (0.0-2.0); EOSINOPHIL % 2.7 % (0-5); GRANULOCYTE % 74.7 % (42.2-75.2); HEMATOCRIT 37.5 % (42-52); MEAN CORPUSCULAR HGB 25.5 PG (27.0-31.0); MEAN CORPUSCULAR HGB CONC 33.2 G/DL (33.0-37.0); MEAN CORPUSCULAR VOLUME 76.7 FL (80.0-94.0); MEAN PLATELET VOLUME 8.6 FL (7.4-10.4); PLATELET COUNT 246 /CUMM (130-400); RBC DISTRIBUTION WIDTH 14.4 % (11.5-14.5); RED BLOOD CELL CT 4.89 /CUMM (4.70-6.10); WHITE BLOOD CELL COUNT 8.1 /CUMM (4.8-10.8)
[2016-12-18 08:43] VITALS: BP 126/70
--- NOTE | 2016-12-18 11:50 | NUR ---
NSG NOTE: PATIENT TRANSFERED TO OR VIA STRETCHER ACCOMPANIED BY DISTRIBUTION; PATIENT A/OX3; RA, VSS; BLOOD SUGAR OBTAINED BY [facility] ON STRETCHER PATIENT ABOUT TO GO DOWN, WAS NOT COVERED; OR CHECKLIST COMPLETE; CHART SENT WITH PATIENT; WILL CONT TO MONITOR;
--- NOTE | 2016-12-18 13:24 | Operative Report ---
Operative/Inv Procedure Report Surgery Date: 12/18/16 Name of Procedure: 1 open incision and drainage deep to the D fashion with exposure of the flexor and extensor tendon and tendon sheath multiple sites right foot 2 delayed primary closure of open surgical wound right foot 3 revisional first ray resection right foot 4 intraoperative administration of ankle block anesthesia 5 excisional debridement Pre-Operative Diagnosis: 1 open infected wound right foot 2 osteomyelitis right foot 3 diabetic peripheral neuropathy Post-Operative Diagnosis: The same Estimated Blood Loss: less than 50ml Surgeon/Cras: LEONCIO MISHRA DPM Anesthesia: moderate sedation, block Operative/Procedure Note Note: After obtaining informed consent the patient was brought to the operating room and placed on the operating table in the supine position. The patient isn't securely fastened to the operating table utilizing safety belt. After administration of IV sedation, 10 mL of 0.5% Marcaine plain was obtained about the patient's right ankle. The right foot and ankle then scrubbed prepped and draped in usual aseptic manner. Attention directed to the right foot, where a large full-thickness necrotic was identified. A 15 blade was utilized sharply revised skin margins. The dissection was then carried down deep to the D fashion with exposure of the flexor and extensor tendon and tendon sheath multiple sites, both proximally and distally. All necrotic nonviable infected tissue sharply evacuated from the wound bed. He dissection was then carried down to the metatarsophalangeal joint where the capture and ligamentous structures were freed and the distal osseous segment was passed from the operative field. The specimen sent for pathologic inspection. The open was then irrigated with 3 L of normal sterile saline infusion 50,000 units of bacitracin. Following this the foot was redraped and the surgeon's top gloves were changed clean gloves. Any bleeding vessels identified were cauterized or ligated as encountered. A dorsal and plantar flap was then developed with release of the morning ligaments, mobilization and advancement of the inferior margin superiorly. The plantar flap was held centrally with 3-0 Vicryl. Superiorly, a dorsal flap was also developed with undermining and mobilization adjacent tissues. This flap was rotated inferiorly towards the central portion wound. The deep side of the flap was again held in place with 3-0 Vicryl. Subtenons tissues reports a 4-0 Vicryl and the skin edges reapproximated 3-0 nylon. The incision was dressed with Xeroform 4 x 4's Kerlix and an Donald wrap. The patient was noted to tolerate both procedure and anesthesia well and the patient was transported from the operating room to recovery with vital signs stable and vascular status intact to both the dorsal and plantar flaps.
[2016-12-18] MEDS ORDERED: LEVEMIR100 UNIT/1 SC (13:48)
--- NOTE | 2016-12-18 15:26 | Discharge Summary ---
Visit Information Visit Dates Admission Date: 12/14/16 Discharge Date: 12/19/16 Hospital Course Course Attending Physician: ZENA JOHNSON MD Primary Care Physician: LOU ORTIZ MD Consulting Request: 1 Consulting Specialty: Podiatry Consulting Physician: Dr. Peterson Reason for Consult: Right great toe osteomyelitis Consulting Request: 2 Consulting Specialty: Endocrinology Consulting Physician: Dr. Blanco Reason for Consult: Uncontrolled DM Hospital Course: Mr. Rosario is a pleasant 36 year old male with PMH DM, HTN, anxitey and depression who presented to [place] on 12/14/16 with chief complaint of swelling and ulceration of his right large toe. This ulceration had been present for at least 5 months, but recently was associated with fever to 100.5, chills, weakness and erythema. In the ED: Vitals showed T 98.1, HR 113, RR 18, BP 167/109 and O2 saturation of 99% on RA. Labs were significant for WBC 11.7 without bandemia, H&H 13.4/39.8, Na 132, ESR 109, BUN 22, blood sugar 350, Fe 24. Patient was admitted to the general medicine floor and the following is the management: 1. Right great toe osteomyelitis: Initial toe xray was suggestive of osteomyelitis and the MRI was confirmatory for osteomyelitis with possible joint septic arthritis; also noted were possible sinus tracts. Dr. Peterson was consulted and suggested patient be taken to the OR for debridement and partial amputation. Patient was taken to the OR on 12/16/16 and had 1. open incision and drainage deep to the fascia with exposure of the extensor and flexor tendon 2. partial first ray resection right foot and 3. excisional debridement. Patient did not have his procedure site closed due to excessive edema and patient returned to the OR on 12/18/16 for closure. While patient was in the hospital, he was placed on IV cefazolin pending OR cultures. Biopsy results showed growth of staph aureus, diptheroids, beta strep group B and beta strep group G. ID was able to follow patient while he was admitted and suggested on discharge patient be transitioned to keflex 1 gram PO every 6 hours and flagyl 500 mg PO every 8 hours for 1 week. Patient was discharged with these medications and should follow up closely with both his PCP and Dr. Peterson within the week. Patient will have his first dressing change by Dr. Peterson and he will have visiting nurses to help change the dressing thereafter. Patient is able to ambulate with only a surgical boot and heel touch, otherwise he should remain non-weight bearing. 2. HTN: Patient was continued on his losartan 100 mg PO daily. His blood pressure was monitored closely and noted to be in adequate range. He was discharged home with instructions to continue this medication. 3. Diabetes mellitus: Due to patient's history of diabetes mellitus, we started patient no moderate dose novolog sliding scale and his home levemir dose on admission. Due to persistently elevated serum glucose levels, a HgA1C was checked and found to be elevated to 12.9. An endocrinology consult was placed with Dr. Blanco at that time. His novolog sliding scale was increased to a high dose scale, levemir was increased to 15 U SC BID and his metformin was continued at 500 mg BID. Patient was counseled on weight loss and needing strict diet to better control FSGs. Patient should follow up closely with Dr. Blanco after discharge to optimize his diabetic management. He was discharged on his home dose of metformin, a high dose sliding scale and 15 U SC levemir BID. His glipizide was discontinued. 4. Anxiety/depression: Patient was continued on his home medications of zoloft and xanax and may continue these after discharge. He shold follow up with his PCP and/or psychiatrist for continued care. 5. Microcytic anemia: Patient was noted to be slightly anemic on admission to 13.4/39.8. MCV was 76.4. Iron studies were performed that showed iron deficiency anemia with Fe of 24. He was started on ferrous sulfate daily and will be discharged on this medication. 6. Code: FULL 7. DVT Prophylaxis: SC Lovenox Complications: None. Allergies: Coded Allergies: penicillin G (RASH 12/14/16) Significant Procedures: EXAMINATION: XR TOES, RIGHT CLINICAL INFORMATION: Chronic ulcer on the first toe. Redness to the metatarsal. COMPARISON: None TECHNIQUE: 3 views of the right toes were obtained. FINDINGS: There is soft tissue ulceration at the plantar aspect of the first digit. No definite osseous erosion. Slight lucency noted at the plantar aspect of the distal phalanx. Mild degenerative changes are noted at the interphalangeal joint and first metatarsophalangeal joint with small osteophytes present. Soft tissue swelling noted. IMPRESSION: No erosions. Lucency noted at the plantar aspect of the first digit distal phalanx adjacent to the ulcer. Osteomyelitis could have this appearance. MRI is more sensitive for the evaluation. EXAMINATION: MRI FOOT WITHOUT AND WITH CONTRAST, RIGHT CLINICAL INFORMATION: Osteomyelitis. Ulcer right great toe plantar aspect. COMPARISON: None. TECHNIQUE: MRI the right foot was performed before and after contrast. Contrast dose 20 mL of Gadavist given intravenously. The examination is technically compromised because of patient movement throughout the examination despite repeating multiple sequences. Patient could not hold still throughout the exam. The field of view is limited to the forefoot given the clinical indication. FINDINGS: Despite the limitation because of motion artifact, there is some diagnostic information on the examination. Great Toe: There is abnormal signal and enhancement in the subcutaneous soft tissues, most prominent along the medial plantar aspect of the toe at the level of the distal phalanx. The abnormal signal extends from the superficial portion of the soft tissues to the bone. This abnormal signal is dark on T1 bright on T2. There is some signal void superficially which may reflect an ulcer or air in the soft tissues. There is concomitant abnormal signal throughout the distal phalanx and proximal phalanx crossing the IP joint where there is also a moderate joint effusion. Concomitant enhancement of the bone corresponding to the areas of bone marrow edema. No definite bone destruction or erosion. There is additional generalized abnormal signal in the subcutaneous soft tissues with some minimal heterogeneous enhancement throughout the forefoot compatible with edema, cellulitis or a combination of both. Muscles/Tendons: There is abnormal signal diffusely throughout with some possible mild heterogeneous enhancement compatible with edema and/or myositis. No focal fluid collection identified. Joint Fluid/Bursa: As noted above, there is a moderate effusion of the IP joint of the great toe and a mild effusion of the first metacarpophalangeal joint. Otherwise unremarkable. Neurovascular Structures: Unremarkable. Ligaments: Unremarkable. IMPRESSION: Limited examination as the patient was moving throughout the examination resulting in motion artifact. Despite this, there is some diagnostic information available. Findings compatible with ulceration and/or soft tissue infection/cellulitis overlying the plantar medial aspect of the distal phalanx, possibly with an ulcer and/or small superficial sinus tract. There is concomitant abnormal signal within the distal phalanx and proximal phalanx crossing the IP joint which likely reflects osteomyelitis and septic arthritis in the clinical scenario presented. No clear bone erosion or destruction on the examination. However, the findings likely reflect early osteomyelitis prior to a morphologic abnormality. Other noninfectious inflammatory arthropathy could result in the same appearance but typically are not associated with overlying soft tissue changes as described. Additional abnormality in the subcutaneous soft tissues of the forefoot could reflect edema, cellulitis or a combination of the two. Additionally, there is abnormal signal in the muscles of the forefoot, likely reflecting edema and/or myositis. Disposition Summary Disposition Principal Diagnosis: Osteomyelitis, right great toe. Additional Diagnosis: Uncontrolled diabetes mellitus Obesity HTN HLD Anxiety/depression Microcytic anemia Discharge Disposition: home or self care Discharge Instructions General Discharge Information Code Status: Full Code Patient's Diet: Consistent carbohydrate 2. Patient's Activity: Self-limited, as tolerated. Follow-Up Instructions/Appts: Please follow up with your PCP within 1 week of discharge. Please take all medications as directed. Please follow up with Dr. Blanco within 2 weeks for continued management of your diabetes. Please follow up with Dr. Peterson within 1 week to monitor your right toe. Medications at Discharge Discharge Medications: Continue taking these medications: Metformin HCl (Metformin HCl) 500 MG TABLET 2 Tablet ORAL TWICE DAILY Qty = 120 Comments: Last Taken:12/19/16 Time:6 PM Glipizide (Glipizide ER) 10 MG TAB.ER.24 1 Tablet ORAL DAILY Qty = 90 Comments: NOT GIVEN Sertraline HCl (Sertraline HCl) 100 MG TABLET 2.5 Tablet ORAL DAILY Qty = 75 Comments: Last Taken:12/19/16 Time:9 AM Alprazolam (Alprazolam ER) 1 MG TAB.ER.24H 1 Tablet ORAL DAILY Qty = 30 Comments: Last Taken:12/19/16 Time:6 PM Losartan Potassium (Losartan Potassium) 100 MG TABLET 1 Tablet ORAL DAILY Qty = 90 Comments: Last Taken:12/19/16 Time:9 AM Multivitamin (Daily Multiple Vitamin) 1 EACH TABLET 1 Tablet ORAL DAILY Comments: NOT GIVEN Cholecalciferol (Vitamin D3) (Vitamin D) 2,000 UNIT CAPSULE 5,000 Unit ORAL DAILY Comments: NOT GIVEN Esomeprazole (Nexium) 40 MG CAPSULE.DR 1 Capsule ORAL DAILY Comments: Last Taken:12/19/16 Time:7 AM Start taking the following new medications: Insulin Detemir (Levemir) 100 UNIT/ML VIAL 30 Units Inject into fatty tissue DAILY Qty = 3 Refills = 1 Comments: (20 UNITS OF LEVEMIR) Last Taken:12/19/16 Time:9 AM Ferrous Sulfate (Ferrous Sulfate) 325 MG (65 MG IRON) TABLET 1 Tablet ORAL DAILY Qty = 30 No Refills Comments: Last Taken:12/19/16 Time:9 AM Cephalexin (Keflex) 500 MG CAPSULE 2 Capsule ORAL 4XDAY Days = 7 No Refills Comments: IV KEFZOL GIVEN WHILE IN HOSPITAL Last Taken:12/19/16 Time:4 PM Metronidazole (Flagyl) 500 MG TABLET 1 Tablet ORAL THREE TIMES DAILY Days = 7 No Refills Comments: NOT GIVEN Copies To: TAD BALLESTEROS,LEONCIO; BRET VARGAS,RON Attending MD Review Statement Documenting Attending: ELIZABETH VARGAS,ZENA Perez Other Findings: pt being dced on po abx. dw dr peterson from podiatry the discharge plan. pt will f/u with podiatry and with endocrine after discharge plan is to dc him on surgical boot so that he can keep weight off the fore foot for 2 weeks. d/w pt the care plan.
[2016-12-18] MEDS ORDERED: FERROUS SULFAT325 M3 PO (15:33)
[2016-12-18 16:07] VITALS: BP 138/90
--- NOTE | 2016-12-18 18:08 | PN- Diabetes ---
Assessment/Plan Assessment: 36-year-old man with past medical history of uncontrolled diabetes type 2 with HbA1c of 12.9%, hypertension, anxiety, depression came to the hospital for chief complaint of swelling, ulcer of the right big toe. He was diagnosed with osteomyelitis. He underwent surgical procedure on 12/16/2016 and 12/18/2016. He was put on Levemir 15 units twice a day, Novolog coverage before meals and Novolog coverage at bedtime. Levemir was held last night and this morning due to the procedure. His FSGs [id number], [id number], 208 and 246. Plan: continue the current DM regimen for now; monitor FSGs. will follow. If he is medically stable for discharge tomorrow, the discharge plan for DM: --- Levemir 30 units daily; ---metformin 1000 mg twice a day ( with breakfast and with dinner); ---glipizide ER 10 mg daily ( right before breakfast). --- f/u in office after discharge. I will consider adding him on GLP-1 analog as outpatient. Subjective Subjective: He feels okay. Objective Last 24 Hrs of Vital Signs/I&O Vital Signs Date Time Temp Pulse Resp B/P Pulse O2 O2 Flow FiO2 Ox Delivery Rate 12/18 1607 98.3 105 20 138/90 96 12/18 0925 98 126/70 12/18 0843 98.0 98 18 126/70 97 Room Air 12/17 2330 97.8 97 18 129/69 97 Room Air Intake & Output 12/18 1600 12/18 0800 12/18 0000 Intake Total 170 0 400 Output Total 400 Balance -230 0 400 Intake, IV 70 Intake, Oral 100 0 400 Number 0 Bowel Movements Output, Urine 400 Findings Pertinent Lab/Umang Results: Laboratory Tests 12/18 06 Hematology CBC w Diff NO MAN DIFF REQ WBC (4.8 - 10.8 /CUMM) 8.1 RBC (4.70 - 6.10 /CUMM) 4.89 Hgb (14.0 - 18.0 G/DL) 12.5 L Hct (42 - 52 %) 37.5 L MCV (80.0 - 94.0 FL) 76.7 L MCH (27.0 - 31.0 PG) 25.5 L RDW (11.5 - 14.5 %) 14.4 Plt Count (130 - 400 /CUMM) 246 MPV (7.4 - 10.4 FL) 8.6 Gran % (42.2 - 75.2 %) 74.7 Lymphocytes % (20.5 - 51.1 %) 17.5 L Monocytes % (1.7 - 9.3 %) 4.7 Eosinophils % (0 - 5 %) 2.7 Basophils % (0.0 - 2.0 %) 0.4 Absolute Granulocytes (1.4 - 6.5 /CUMM) 6.0 Absolute Lymphocytes (1.2 - 3.4 /CUMM) 1.4 Absolute Monocytes (0.10 - 0.60 /CUMM) 0.4 Absolute Eosinophils (0.0 - 0.7 /CUMM) 0.2 Absolute Basophils (0.0 - 0.2 /CUMM) 0 PUBS MCHC (33.0 - 37.0 G/DL) 33.2
[2016-12-18 23:27] VITALS: BP 140/89
--- NOTE | 2016-12-19 06:42 | NUR ---
PT REFUSING ALPS AND LOVENOX. DR. CUMMINGS AWARE
--- NOTE | 2016-12-19 07:25 | PN- Housestaff ---
See Addendum Subjective Follow-up For: Right great toe osteomyelitis Subjective: Patient seen and examined at bedside this AM. Dr. Luis is aware patient had mild bleeding on his wound dressing and will have patient follow up with him in 1 week. Patient is to be non weight bearing or do heel touch with surgical shoe. Review of Systems Constitutional: Denies: chills, fever, malaise. EENTM: Denies: blurred vision. Cardiovascular: Denies: chest pain. Respiratory: Denies: cough. Gastrointestinal: Denies: abdominal pain. Genitourinary: Denies: dysuria. Musculoskeletal: Denies: back pain, joint pain. Neurological/Psychological: Denies: confusion. Hematologic/Endocrine: Denies: polyuria, polydipsia. Objective Last 24 Hrs of Vital Signs/I&O Vital Signs Date Time Temp Pulse Resp B/P Pulse O2 O2 Flow FiO2 Ox Delivery Rate 12/19 0906 94 130/86 12/19 0746 98.0 94 20 130/86 96 Room Air 12/18 2327 98.3 105 20 140/89 96 Room Air 12/18 1607 98.3 105 20 138/90 96 Intake & Output 12/19 1600 12/19 0800 12/19 0000 Intake Total 100 600 Output Total Balance 100 600 Intake, Oral 100 600 Physical Exam General Appearance: Alert, Oriented X3, Cooperative, No Acute Distress Other Physical Findings: Skin: RLE dry dressing. HEENT: Atraumatic, Mucous Membr. moist/pink Neck: Supple, No JVD Lymphatic: Cervical nl Cardiovascular: Regular Rate, Normal S1, Normal S2, No Murmurs Lungs: Normal Air Movement Abdomen: Normal Bowel Sounds, Soft, No Tenderness Neurological: Normal Speech, Normal Tone Extremities: No Clubbing, No Cyanosis Current Medications: Current Medications Sig/Gerard Start time Last Medication Dose Route Stop Time Status Admin Acetaminophen 650 MG Q6P PRN 12/14 0945 AC PO Alprazolam 0.25 MG 4 TIMES/DAY 12/14 1630 AC 12/19 PO 12/21 1629 0909 Cefazolin Sodium 2 GM IQ8 12/16 1600 AC 12/19 N/A 1 UNIT IV 0927 Enoxaparin Sodium 40 MG DAILY 12/15 1000 AC 12/19 SC 0909 Fentanyl Citrate 100 MCG .STK-MED ONE 12/18 1159 DC IM 12/18 1200 Ferrous Sulfate 325 MG DAILY 12/15 1000 AC 12/19 PO 0906 Insulin Aspart 0 TIDAC/HS 12/18 1700 AC 12/19 SC 0907 Insulin Detemir 20 UNITS BID 12/19 1000 AC 12/19 SC 0908 Insulin Detemir 15 UNITS BID 12/17 1000 DC 12/18 SC 2117 Insulin Human Regular 0 Q6 12/18 0600 DC SC Losartan Potassium 100 MG DAILY 12/14 1000 AC 12/19 PO 09 Metformin HCl 1,000 MG 0800,1700 12/17 0900 AC 12/19 PO 09 Midazolam HCl 2 MG .STK-MED ONE 12/18 1159 DC IM 12/18 1200 Morphine Sulfate 4 MG Q4P PRN 12/14 944 AC IV Omeprazole 20 MG DAILY AC 12/15 0700 AC 12/17 PO 07 Oxycodone HCl 5 MG Q6P PRN 12/14 0845 AC PO Sertraline HCl 250 MG DAILY 12/14 1000 AC 12/19 PO 09 Last 24 Hrs of Lab/Umang Results Last 24 Hrs of Labs/Mics: Laboratory Tests 12/19/16 0634: CBC w Diff NO MAN DIFF REQ, RBC 5.20, MCV 76.8 L, MCH 25.6 L, RDW 14.2, MPV 8.7, Gran % 72.8, Lymphocytes % 19.7 L, Monocytes % 4.8, Eosinophils % 2.3, Basophils % 0.4, Absolute Granulocytes 6.9 H, Absolute Lymphocytes 1.9, Absolute Monocytes 0.5, Absolute Eosinophils 0.2, Absolute Basophils 0, PUBS MCHC 33.3 Assessment/Plan Assessment: Mr. Rosario is a pleasant 36 year old male with PMH DM, HTN, anxitey and depression who presented to [place] on 12/14/16 with chief complaint of swelling and ulceration of his right large toe. This ulceration has been present for at least 5 months, but recently it has been associated with fever to 100.5, chills weakness and erythema. In the ED: Vitals showed T 98.1, HR 113, RR 18, BP 167/109 and O2 saturation of 99% on RA. Labs were significant for WBC 11.7 without bandemia, H&H 13.4/39.8, Na 132, ESR 109, BUN 22, blood sugar 350, Fe 24. Patient was admitted to the general medicine floor and the following is the management: 1. Right great toe osteomyelitis * Initial toe Xray suggestive of osteomyelitis, MRI confirmatory for osteomyelitis with possible joint septic arthritis; also noted were possible sinus tracts * Patient PO from debridement/partial resection first ray right food and now revision/closure done yesterday * Patient currently on IV cefazolin 2gm Q8, will send home on PO augmentin * ID consult appreciated * Patient currently remains afebrile, monitor for fevers * BC x 2 sent, NGTD, f/u final results * Extremity specimin shows gram + cocci, beta strep group b and G * Pain control with morphine for severe pain, roxicodone for moderate pain, and tylenol for mild pain * Patient will f/u with Dr. Luis within 1 week, will be placed in surgical shoe and can ambulate only with heel touch or he will remain non weight bearing * Patient sent home with a prescription for time off from work * Patient to complete 7 d course of augmentin as per Dr. Luis 2. HTN, HLD * Continue losartan 100 mg PO daily 3. Diabetes mellitus * HgA1C ordered, elevated to 12.9 * Endo consult with Dr. Blanco appreciated, will continue to follow recommendations * Diabetic regimen changed to levemir 15 U SC BID, metformin 1000 mg BID and high dose NSS while inpatient * Patient discharged on same home regimen except levemir dose will be increased to 30 U SC * Accuchecks TIDAC/HS * Patient counseled on weight loss and needing strict diet to better control FSGs 4. Anxiety/depression * Continue zoloft 250 mg PO daily * Continue xanax QID 0.25 mg as needed for anxiety 4. Microcytic anemia * NO active signs of bleeding * Fe level noted to be low * Ferrous sulfate started, will continue on discharge FULL CODE Regular diet Mild-severe pain pathway DVTP: Lovenox Problem List: 1. Uncontrolled diabetes mellitus 2. Osteomyelitis of toe of right foot Pain Ratin Pain Location: n/a Pain Goal: Remain pain free Pain Plan: Mild pain pathways Tomorrow's Labs & Rationales: None. Consulting Request: Consulting Specialty: Endocrinology Consulting Physician: Dr. Blanco Reason for Consult: Uncontrolled DM
[2016-12-19 07:46] VITALS: BP 130/86
[2016-12-19 08:11] LABS: ABSOLUTE BASOPHIL COUNT 0 /CUMM (0.0-0.2); ABSOLUTE EOSINOPHIL COUNT 0.2 /CUMM (0.0-0.7); ABSOLUTE GRANULOCYTE CT 6.9 /CUMM (1.4-6.5); ABSOLUTE LYMPH COUNT 1.9 /CUMM (1.2-3.4); ABSOLUTE MONOCYTE COUNT 0.5 /CUMM (0.10-0.60); BASOPHIL % 0.4 % (0.0-2.0); EOSINOPHIL % 2.3 % (0-5); GRANULOCYTE % 72.8 % (42.2-75.2); MEAN CORPUSCULAR HGB 25.6 PG (27.0-31.0); MEAN CORPUSCULAR HGB CONC 33.3 G/DL (33.0-37.0); MEAN CORPUSCULAR VOLUME 76.8 FL (80.0-94.0); MEAN PLATELET VOLUME 8.7 FL (7.4-10.4); PLATELET COUNT 279 /CUMM (130-400); RBC DISTRIBUTION WIDTH 14.2 % (11.5-14.5); WHITE BLOOD CELL COUNT 9.5 /CUMM (4.8-10.8)
--- NOTE | 2016-12-19 10:55 | PN- Diabetes ---
Assessment/Plan Assessment: 36-year-old man with past medical history of uncontrolled diabetes type 2 with HbA1c of 12.9%, hypertension, anxiety, depression came to the hospital for chief complaint of swelling, ulcer of the right big toe. He was diagnosed with osteomyelitis. He underwent surgical procedure on 12/16/2016 and 12/18/2016. He was put on Levemir 15 units twice a day, Novolog coverage before meals and Novolog coverage at bedtime. In addition, he is on metformin 1000 mg twice a day. His FSGs were 208, 276, 246, 284 and 265. Plan: 1. increase Levemir to 20 units twice a day; 2. continue metformin 1000 mg twice a day; 3. continue the current Novolog coverage before meals and Novolog coverage at bedtime. 4. monitor FSGs. will follow. Subjective Subjective: His glucose level is not controlled yet. Objective Last 24 Hrs of Vital Signs/I&O Vital Signs Date Time Temp Pulse Resp B/P Pulse O2 O2 Flow FiO2 Ox Delivery Rate 12/19 0906 94 130/86 12/19 0746 98.0 94 20 130/86 96 Room Air 12/18 2327 98.3 105 20 140/89 96 Room Air 12/18 1607 98.3 105 20 138/90 96 Intake & Output 12/19 1600 12/19 0800 12/19 0000 Intake Total 100 600 Output Total Balance 100 600 Intake, Oral 100 600 Findings Pertinent Lab/Umang Results: Laboratory Tests 12/19 0634 Hematology CBC w Diff NO MAN DIFF REQ WBC (4.8 - 10.8 /CUMM) 9.5 RBC (4.70 - 6.10 /CUMM) 5.20 Hgb (14.0 - 18.0 G/DL) 13.3 L Hct (42 - 52 %) 40.0 L MCV (80.0 - 94.0 FL) 76.8 L MCH (27.0 - 31.0 PG) 25.6 L RDW (11.5 - 14.5 %) 14.2 Plt Count (130 - 400 /CUMM) 279 MPV (7.4 - 10.4 FL) 8.7 Gran % (42.2 - 75.2 %) 72.8 Lymphocytes % (20.5 - 51.1 %) 19.7 L Monocytes % (1.7 - 9.3 %) 4.8 Eosinophils % (0 - 5 %) 2.3 Basophils % (0.0 - 2.0 %) 0.4 Absolute Granulocytes (1.4 - 6.5 /CUMM) 6.9 H Absolute Lymphocytes (1.2 - 3.4 /CUMM) 1.9 Absolute Monocytes (0.10 - 0.60 /CUMM) 0.5 Absolute Eosinophils (0.0 - 0.7 /CUMM) 0.2 Absolute Basophils (0.0 - 0.2 /CUMM) 0 PUBS MCHC (33.0 - 37.0 G/DL) 33.3
[2016-12-19] MEDS ORDERED: AUGMENTIN 875-1 EACH PO (11:48)
--- NOTE | 2016-12-19 14:18 | PN- Infect Dx ---
Subjective Subjective: Afebrile. He notes mild discomfort in the right foot Objective Last 24 Hrs of Vital Signs/I&O Vital Signs Date Time Temp Pulse Resp B/P Pulse O2 O2 Flow FiO2 Ox Delivery Rate 12/19 0906 94 130/86 12/19 0746 98.0 94 20 130/86 96 Room Air 12/18 2327 98.3 105 20 140/89 96 Room Air 12/18 1607 98.3 105 20 138/90 96 Intake & Output 12/19 1600 12/19 0800 12/19 0000 Intake Total 100 600 Output Total Balance 100 600 Intake, Oral 100 600 Physical Exam Other Physical Findings: He appears comfortable in no acute distress Extremities right foot dressing intact Results Last 24 Hours of Lab Results: Laboratory Tests 12/19 06 Hematology CBC w Diff NO MAN DIFF REQ WBC (4.8 - 10.8 /CUMM) 9.5 RBC (4.70 - 6.10 /CUMM) 5.20 Hgb (14.0 - 18.0 G/DL) 13.3 L Hct (42 - 52 %) 40.0 L MCV (80.0 - 94.0 FL) 76.8 L MCH (27.0 - 31.0 PG) 25.6 L RDW (11.5 - 14.5 %) 14.2 Plt Count (130 - 400 /CUMM) 279 MPV (7.4 - 10.4 FL) 8.7 Gran % (42.2 - 75.2 %) 72.8 Lymphocytes % (20.5 - 51.1 %) 19.7 L Monocytes % (1.7 - 9.3 %) 4.8 Eosinophils % (0 - 5 %) 2.3 Basophils % (0.0 - 2.0 %) 0.4 Absolute Granulocytes (1.4 - 6.5 /CUMM) 6.9 H Absolute Lymphocytes (1.2 - 3.4 /CUMM) 1.9 Absolute Monocytes (0.10 - 0.60 /CUMM) 0.5 Absolute Eosinophils (0.0 - 0.7 /CUMM) 0.2 Absolute Basophils (0.0 - 0.2 /CUMM) 0 PUBS MCHC (33.0 - 37.0 G/DL) 33.3 Last 24 Hours of Umang Results: OR culture December 16 positive for Group B strep, Group G strep, Staph aureus sensitive to Oxacillin, diphtheroids and a possible anaerobe Assessment/Plan Impression: Stable status post further debridement and wound closure of the right foot yesterday after a great toe amputation 3 days ago for polymicrobial osteomyelitis with temperatures and white blood cell count remaining normal on Cefazolin. The Cefazolin should cover the strep and Staph aureus, but not the anaerobe. The diphtheroids is a presumed contaminant and does not require treatment. Have again discussed with Podiatry who feels that all of the infected bone has been removed and that he should not require treatment for residual osteomyelitis. Suggestion: 1. Follow-up final OR cultures and pathology 2. Discontinue Cefazolin 3. Begin Keflex 1 gram po every 6 hours and Flagyl 500 mg po every 8 hours for 1 week
[2016-12-19] MEDS ORDERED: FLAGYL500 MG PO (14:29)
[2016-12-19] MEDS ORDERED: KEFLEX500 M1 PO (14:29)
[2016-12-19 17:45] VITALS: BP 140/83
== END 2016-12-19 20:11 | disposition home health service (06) | DRG 465 ==
LOC: ENRESERVTM → ENRESERVDT → ERH 03:48 → ERHI 05:32 → 2NB 05:32 → ENPENDDIS 05:32 → 2NB 09:55
PROVIDERS: Emergency Medicine; Internal Medicine; Student in an Organized Health Care Education/Training Program; ADMIT Hospitalist
PROC: 0JBQ0ZZ Excision of Right Foot Subcutaneous Tissue and Fascia, Open Approach (ICD-10-PCS; principal; 2016-12-16)
PROC: 0J9Q0ZZ Drainage of Right Foot Subcutaneous Tissue and Fascia, Open Approach (ICD-10-PCS; principal; 2016-12-16)
PROC: 0Y6P0Z3 Detachment at Right 1st Toe, Low, Open Approach (ICD-10-PCS; principal; 2016-12-16)
PROC: 0J9Q0ZZ Drainage of Right Foot Subcutaneous Tissue and Fascia, Open Approach (ICD-10-PCS; 2016-12-18)
PROC: 0JBQ0ZZ Excision of Right Foot Subcutaneous Tissue and Fascia, Open Approach (ICD-10-PCS; 2016-12-18)
PROC: 0JQQ0ZZ Repair Right Foot Subcutaneous Tissue and Fascia, Open Approach (ICD-10-PCS; 2016-12-18)
DX: M86.9 Osteomyelitis, unspecified (principal); E11.42 Type 2 diabetes mellitus with diabetic polyneuropathy; E11.65 Type 2 diabetes mellitus with hyperglycemia; I10 Essential (primary) hypertension; Z79.84 Long term (current) use of oral hypoglycemic drugs; F41.8 Other specified anxiety disorders; D50.9 Iron deficiency anemia, unspecified
CPT/HCPCS: 2NBSP; 75659; 87070; 87075; 87184; 36415; 73660-RT; 82436; 87040; 87071; 87147; 88305; 93005; 93010; 96365; A9579; J0690; J0713; J1650; J1815; J2001; J3370; J3490